=== PATIENT | female | born 1960 | race Caucasian/White ===

== ENCOUNTER → 2017-10-18 | Outpatient (CLI) | payer BC ==
--- NOTE | 2017-10-20 08:38 | MM ---
Reason for exam: screening (asymptomatic). Last mammogram was performed 1 year and 10 months ago. Physical Findings: A clinical breast exam by your physician is recommended on an annual basis and results should be correlated with mammographic findings. MG 3D Screening Mammo W/Cad Bilateral CC and MLO view(s) were taken. Prior study comparison: December 13, 2015, bilateral MG 3d screening mammo w/cad. October 29, 2014, bilateral MG screening mammo w CAD. There are scattered fibroglandular densities. No significant changes when compared with prior studies. ASSESSMENT: Benign, BI-RAD 2 RECOMMENDATION: Routine screening mammogram of both breasts in 1 year.
== END | disposition home or self-care (01) ==
LOC: RADMAMWWP 16:34
PROVIDERS: ATTEND Family Medicine
DX: Z12.31 Encounter for screening mammogram for malignant neoplasm of breast (principal)
CPT/HCPCS: 77063; 77067

== ENCOUNTER 2018-02-21 17:54 | Emergency (ER) | payer BC ==
[2018-02-21 18:31] VITALS: PULSE 54; RESP 18; TEMP 98.1
[2018-02-21 19:34] LABS: Basophils % (A) 1 %; Eosinophils # (A) 0.2 k/uL (0-0.7); Eosinophils % (A) 3 %; HCT 39.1 % (34.0-46.0); HGB 13.1 gm/dL (11.4-16.0); Lymphocytes # (A) 1.8 k/uL (1.0-4.8); Lymphocytes % (A) 30 %; MCH 30.2 pg (25.0-35.0); MCHC 33.5 g/dL (31.0-37.0); MCV 89.9 fL (80.0-100.0); Mean Platelet Volume 6.4; Monocytes # (A) 0.4 k/uL (0-1.0); Monocytes % (A) 6 %; Neutrophils # (A) 3.4 k/uL (1.3-7.7); Neutrophils % (A) 58 %; Platelet Count 254 k/uL (150-450); RBC 4.35 m/uL (3.80-5.40); RDW 13.6 % (11.5-15.5); WBC 5.9 k/uL (3.8-10.6)
[2018-02-21 19:38] LABS: ALT 26 U/L (9-52); AST 22 U/L (14-36); Albumin 4.2 g/dL (3.5-5.0); Alkaline Phosphatase 94 U/L (38-126); Anion Gap 4 mmol/L; Blood Urea Nitrogen 12 mg/dL (7-17); Calcium 9.4 mg/dL (8.4-10.2); Carbon Dioxide 29 mmol/L (22-30); Chloride 107 mmol/L (98-107); Glucose 91 mg/dL (74-99); Potassium 3.9 mmol/L (3.5-5.1); Sodium 140 mmol/L (137-145); Total Bilirubin 0.5 mg/dL (0.2-1.3); Total Protein 7.1 g/dL (6.3-8.2)
[2018-02-21 19:44] LABS: Partial Thromboplastin Time 24.8 sec (22.0-30.0)
[2018-02-21 19:45] LABS: Creatine Kinase 64 U/L (30-135)
[2018-02-21 19:58] LABS: Creatine Kinase MB 0.3 ng/mL (0.0-2.4); Troponin I <0.012 ng/mL (0.000-0.034)
[2018-02-21] MEDS ORDERED: LIDOCAINE VISCOUS 2% 15 ML CUP MUCOUS MEM ONE (21:39)
[2018-02-21] MEDS ORDERED: MAG HYDROX/AL HYDROX/SIMETH 30 ML CUP PO PRN (21:39)
--- NOTE | 2018-02-21 21:50 | ED ---
General Adult HPI - General Chief complaint: Chest Pain Stated complaint: High blood pressure/heartburn/nausea Time Seen by Provider: 02/21/18 20:59 Source: patient Mode of arrival: ambulatory Limitations: no limitations - History of Present Illness Initial comments: Kadie is an obese 57-year-old female who presents to the emergency department today for evaluation of acid reflux and nausea. Patient reports that for the past 3 days she has been experiencing a sensation of heart burn and indigestion , she states that beginning last night she began feeling as though acid was coming up into her throat. Patient states that throughout the day today she has not had any appetite and has been experiencing nausea and dry heaves. Patient states that she's having some burning epigastric pain. Patient states that she has had acid reflux in the past, however it was never this bad. She was previously on Tagamet and Zantac but has not been on any medications lately. She denies any exertional chest pain, shortness of breath, palpitations, lightheadedness. She has no history of diabetes, smoking or hyperlipidemia, she does have family history significant for a sister who had a valvular heart disease as well as father who had coronary artery disease later in life. Patient denies any recent illness, fevers, chills, change in bowel or bladder habits. She does report that for the past 9 days they have discussed staying at their house which is been mildly stressful, but she states that prior to today she's had a good appetite and been able to eat. - Related Data Home Medications Medication Instructions Recorded Confirmed Aspirin 81 mg PO DAILY PRN 11/04/14 02/21/18 Sertraline HCl [Zoloft] 50 mg PO DAILY 02/21/18 02/21/18 Allergies Allergy/AdvReac Type Severity Reaction Status Date / Time codeine Allergy Itching Verified 02/21/18 21:01 latex Allergy Rash/Hives Verified 02/21/18 21:01 Review of Systems ROS Statement: Those systems with pertinent positive or pertinent negative responses have been documented in the HPI. ROS Other: All systems not noted in ROS Statement are negative. Past Medical History Past Medical History: Hypertension History of Any Multi-Drug Resistant Organisms: None Reported Past Surgical History: Breast Surgery, Cholecystectomy, Tonsillectomy Past Psychological History: Anxiety Smoking Status: Never smoker Past Alcohol Use History: Occasional Past Drug Use History: None Reported General Exam Limitations: no limitations General appearance: alert, in no apparent distress Head exam: Present: atraumatic, normocephalic Eye exam: Present: normal appearance, PERRL ENT exam: Present: normal exam Neck exam: Present: normal inspection Respiratory exam: Present: normal lung sounds bilaterally. Absent: wheezes Cardiovascular Exam: Present: regular rate, normal rhythm GI/Abdominal exam: Present: soft. Absent: distended, tenderness Rectal exam: Present: deferred Extremities exam: Present: normal inspection, pedal edema (1+ pedal edema bilaterally ) Back exam: Present: normal inspection Neurological exam: Present: alert, oriented X3 Psychiatric exam: Present: normal affect, normal mood Skin exam: Present: warm, dry Course Vital Signs 02/21/18 02/21/18 18:29 22:02 Temperature 98.1 F Pulse Rate 54 L Respiratory 18 Rate Blood Pressure 164/82 149/66 O2 Sat by Pulse 99 Oximetry Medical Decision Making - Medical Decision Making Patient was seen and evaluated Patient with history of acid reflux, no cardiac history, risk factors for cardiac disease including age, hypertension and obesity Heart score 2 Labs within normal limits, troponin negative Patient was given a GI cocktail which she reports significantly improved her symptoms Chest x-ray reveals no acute findings Results were discussed with the patient, I offered the patient admission to the hospital for observation and evaluation by cardiology. However patient feels confident that this discomfort is secondary to gastroesophageal reflux, she feels better after the Maalox and has otherwise negative workup. Patient has a heart score of 2, low suspicion for cardiac etiology of her symptoms. Patient has an established relationship with her primary care physician whom she will call in the morning for follow-up. After discussion of the patient's options. Ensure decision making the patient and decided to be discharged home so she could sleep comfortably in her own bed and follow-up with her primary care physician. All questions pertaining care were answered the best my ability, patient was advised that if she has any worsening pain or change in her symptoms , 911 or return to the hospital immediately. - Lab Data Result diagrams: 02/21/18 19:16 02/21/18 19:16 Lab Results 02/21/18 02/21/18 02/21/18 Range/Units 19:16 19:16 19:16 WBC 5.9 (3.8-10.6) k/uL RBC 4.35 (3.80-5.40) m/uL Hgb 13.1 (11.4-16.0) gm/dL Hct 39.1 (34.0-46.0) % MCV 89.9 (80.0-100.0) fL MCH 30.2 (25.0-35.0) pg MCHC 33.5 (31.0-37.0) g/dL RDW 13.6 (11.5-15.5) % Plt Count 254 (150-450) k/uL Neutrophils % 58 % Lymphocytes % 30 % Monocytes % 6 % Eosinophils % 3 % Basophils % 1 % Neutrophils # 3.4 (1.3-7.7) k/uL Lymphocytes # 1.8 (1.0-4.8) k/uL Monocytes # 0.4 (0-1.0) k/uL Eosinophils # 0.2 (0-0.7) k/uL Basophils # 0.0 (0-0.2) k/uL PT (9.0-12.0) sec INR (<1.2) APTT (22.0-30.0) sec Sodium 140 (137-145) mmol/L Potassium 3.9 (3.5-5.1) mmol/L Chloride 107 (98-107) mmol/L Carbon Dioxide 29 (22-30) mmol/L Anion Gap 4 mmol/L BUN 12 (7-17) mg/dL Creatinine 0.80 (0.52-1.04) mg/dL Est GFR (CKD-EPI)AfAm >90 (>60 ml/min/1.73 sqM) Est GFR (CKD-EPI)NonAf 84 (>60 ml/min/1.73 sqM) Glucose 91 (74-99) mg/dL Calcium 9.4 (8.4-10.2) mg/dL Total Bilirubin 0.5 (0.2-1.3) mg/dL AST 22 (14-36) U/L ALT 26 (9-52) U/L Alkaline Phosphatase 94 (38-126) U/L Total Creatine Kinase 64 (30-135) U/L CK-MB (CK-2) 0.3 (0.0-2.4) ng/mL CK-MB (CK-2) Rel Index 0.5 Troponin I <0.012 (0.000-0.034) ng/mL Total Protein 7.1 (6.3-8.2) g/dL Albumin 4.2 (3.5-5.0) g/dL 02/21/18 Range/Units 19:16 WBC (3.8-10.6) k/uL RBC (3.80-5.40) m/uL Hgb (11.4-16.0) gm/dL Hct (34.0-46.0) % MCV (80.0-100.0) fL MCH (25.0-35.0) pg MCHC (31.0-37.0) g/dL RDW (11.5-15.5) % Plt Count (150-450) k/uL Neutrophils % % Lymphocytes % % Monocytes % % Eosinophils % % Basophils % % Neutrophils # (1.3-7.7) k/uL Lymphocytes # (1.0-4.8) k/uL Monocytes # (0-1.0) k/uL Eosinophils # (0-0.7) k/uL Basophils # (0-0.2) k/uL PT 10.0 (9.0-12.0) sec INR 1.0 (<1.2) APTT 24.8 (22.0-30.0) sec Sodium (137-145) mmol/L Potassium (3.5-5.1) mmol/L Chloride (98-107) mmol/L Carbon Dioxide (22-30) mmol/L Anion Gap mmol/L BUN (7-17) mg/dL Creatinine (0.52-1.04) mg/dL Est GFR (CKD-EPI)AfAm (>60 ml/min/1.73 sqM) Est GFR (CKD-EPI)NonAf (>60 ml/min/1.73 sqM) Glucose (74-99) mg/dL Calcium (8.4-10.2) mg/dL Total Bilirubin (0.2-1.3) mg/dL AST (14-36) U/L ALT (9-52) U/L Alkaline Phosphatase (38-126) U/L Total Creatine Kinase (30-135) U/L CK-MB (CK-2) (0.0-2.4) ng/mL CK-MB (CK-2) Rel Index Troponin I (0.000-0.034) ng/mL Total Protein (6.3-8.2) g/dL Albumin (3.5-5.0) g/dL Disposition Clinical Impression: Atypical chest pain, GERD (gastroesophageal reflux disease) Disposition: HOME SELF-CARE Condition: Good Instructions: Chest Pain (ED) Is patient prescribed a controlled substance at d/c from ED?: No Referrals: Mj Escobar DO [Primary Care Provider] - 1-2 days Time of Disposition: 23:50
--- NOTE | 2018-02-21 21:58 | XR ---
EXAMINATION TYPE: XR chest 2V DATE OF EXAM: 02/21/2018 COMPARISON: NONE HISTORY: Chest pain TECHNIQUE: Frontal and lateral views of the chest are obtained. FINDINGS: Heart and mediastinum are normal. Lungs are clear. Diaphragm is normal. Bony thorax is int act. IMPRESSION: Normal chest.
[2018-02-21 22:02] VITALS: BP 149/66
== END 2018-02-22 00:05 | disposition home or self-care (01) ==
LOC: EC 17:54
DX: K21.9 Gastro-esophageal reflux disease without esophagitis (principal); R11.0 Nausea; E66.9 Obesity, unspecified; Z68.39 Body mass index [BMI] 39.0-39.9, adult; F41.9 Anxiety disorder, unspecified; Z79.899 Other long term (current) drug therapy; Z91.040 Latex allergy status; Z88.5 Allergy status to narcotic agent
CPT/HCPCS: 36415; 71046; 80053; 82550; 82553; 84484; 85025; 85610; 85730; 93005; 99285

== ENCOUNTER 2018-09-12 11:34 | Inpatient (IN) | payer BC ==
[2018-09-12] MEDS ORDERED: DILTIAZEM DRIP BOLUS FROM BAG 1 MG SOLN IV ONE ×2 (12:11→13:41)
[2018-09-12] MEDS ORDERED: ASPIRIN 81 MG PO STA (12:11)
--- NOTE | 2018-09-12 12:16 | ED ---
General Adult HPI - General Chief complaint: Arrhythmia/Palpitations Stated complaint: Palpitations Time Seen by Provider: 09/12/18 11:50 Source: patient, family, RN notes reviewed Mode of arrival: ambulatory Limitations: no limitations - History of Present Illness Initial comments: Patient is a pleasant 57-year-old female presenting to the emergency department with complaints of palpitations. Onset of symptoms was yesterday. Symptoms lasted a couple hours and resolved. Symptoms started again around 8:00 this morning. Symptoms do persist. Patient has some discomfort in her chest and shortness of breath associated. Patient has had some similar symptoms in the past however only lasted for a few minutes. Patient was previously evaluated with no abnormality determined. Patient does have strong family history of heart disease. Patient denies any use of energy drinks or diet supplements or significant caffeine intake. - Related Data Home Medications Medication Instructions Recorded Confirmed Sertraline HCl [Zoloft] 50 mg PO DAILY 02/21/18 09/12/18 Cholecalciferol [Vitamin D3] 1,000 unit PO DAILY 09/12/18 09/12/18 Allergies Allergy/AdvReac Type Severity Reaction Status Date / Time codeine Allergy Itching Verified 09/12/18 12:05 hydrocodone Allergy Rash/Hives Verified 09/12/18 12:05 latex Allergy Rash/Hives Verified 09/12/18 12:05 Review of Systems ROS Statement: Those systems with pertinent positive or pertinent negative responses have been documented in the HPI. ROS Other: All systems not noted in ROS Statement are negative. Constitutional: Denies: fever Eyes: Denies: eye pain ENT: Denies: ear pain Respiratory: Reports: dyspnea. Denies: cough Cardiovascular: Reports: chest pain, palpitations Endocrine: Denies: fatigue Gastrointestinal: Denies: abdominal pain, nausea, vomiting Genitourinary: Denies: dysuria Musculoskeletal: Denies: back pain Skin: Denies: rash Neurological: Denies: weakness Past Medical History Past Medical History: Hypertension History of Any Multi-Drug Resistant Organisms: None Reported Past Surgical History: Breast Surgery, Cholecystectomy, Tonsillectomy Past Psychological History: Anxiety Smoking Status: Never smoker Past Alcohol Use History: Occasional Past Drug Use History: None Reported General Exam Limitations: no limitations General appearance: alert, in no apparent distress Head exam: Present: atraumatic Eye exam: Present: normal appearance, PERRL ENT exam: Present: normal oropharynx Neck exam: Present: normal inspection Respiratory exam: Present: normal lung sounds bilaterally Cardiovascular Exam: Present: tachycardia Expanded Peripheral pulses: 2+: Radial (R), Radial (L), Posterior Tibialis (R), Posterior Tibialis (L), Dorsalis Pedis (R), Dorsalis Pedis (L) GI/Abdominal exam: Present: soft. Absent: tenderness Extremities exam: Present: normal inspection. Absent: pedal edema, calf tenderness Neurological exam: Present: alert Psychiatric exam: Present: normal affect, normal mood Skin exam: Present: normal color Course Vital Signs 09/12/18 09/12/18 09/12/18 11:42 12:25 12:44 Temperature 98.7 F Pulse Rate 149 H 147 H Pulse Rate [ 147 H Upholstery Technician ] Respiratory 18 20 Rate Blood Pressure 102/90 145/87 O2 Sat by Pulse 98 100 Oximetry 09/12/18 09/12/18 13:44 14:31 Temperature Pulse Rate 144 H 104 H Pulse Rate [ Upholstery Technician ] Respiratory 16 18 Rate Blood Pressure 133/69 O2 Sat by Pulse 100 100 Oximetry EKG Findings - EKG Comments: EKG Findings:: A flutter with rate of 145. QRS 94. QT 280. QTC 434. Normal axis. Incomplete right bundle-branch block. No acute ST elevation. Medical Decision Making - Medical Decision Making Patient reevaluated and somewhat improved. Heart rate varies between 96 and 135. Patient and family updated on results and plan. Case was discussed in detail with Dr. Carolina, covering for Dr. mejia, who will admit. - Lab Data Result diagrams: 09/12/18 11:51 09/12/18 11:51 Lab Results 09/12/18 09/12/18 09/12/18 Range/Units 11:51 11:51 11:51 WBC 16.9 H (3.8-10.6) k/uL RBC 4.68 (3.80-5.40) m/uL Hgb 13.6 (11.4-16.0) gm/dL Hct 41.4 (34.0-46.0) % MCV 88.5 (80.0-100.0) fL MCH 29.0 (25.0-35.0) pg MCHC 32.7 (31.0-37.0) g/dL RDW 13.9 (11.5-15.5) % Plt Count 356 (150-450) k/uL Neutrophils % 84 % Lymphocytes % 12 % Monocytes % 3 % Eosinophils % 1 % Basophils % 0 % Neutrophils # 14.2 H (1.3-7.7) k/uL Lymphocytes # 2.0 (1.0-4.8) k/uL Monocytes # 0.5 (0-1.0) k/uL Eosinophils # 0.1 (0-0.7) k/uL Basophils # 0.1 (0-0.2) k/uL PT (9.0-12.0) sec INR (<1.2) APTT (22.0-30.0) sec Sodium 141 (137-145) mmol/L Potassium 4.3 (3.5-5.1) mmol/L Chloride 108 H (98-107) mmol/L Carbon Dioxide 21 L (22-30) mmol/L Anion Gap 12 mmol/L BUN 11 (7-17) mg/dL Creatinine 0.79 (0.52-1.04) mg/dL Est GFR (CKD-EPI)AfAm >90 (>60 ml/min/1.73 sqM) Est GFR (CKD-EPI)NonAf 85 (>60 ml/min/1.73 sqM) Glucose 115 H (74-99) mg/dL Calcium 10.1 (8.4-10.2) mg/dL Magnesium 1.7 (1.6-2.3) mg/dL Total Bilirubin 0.7 (0.2-1.3) mg/dL AST 24 (14-36) U/L ALT 18 (9-52) U/L Alkaline Phosphatase 83 (38-126) U/L Total Creatine Kinase 50 (30-135) U/L CK-MB (CK-2) <0.2 (0.0-2.4) ng/mL CK-MB (CK-2) Rel Index Troponin I <0.012 (0.000-0.034) ng/mL Total Protein 7.1 (6.3-8.2) g/dL Albumin 4.0 (3.5-5.0) g/dL TSH 2.030 (0.465-4.680) mIU/L Free T4 1.40 (0.78-2.19) ng/dL Free T3 pg/mL 3.7 (2.8-5.3) pg/ml 09/12/18 Range/Units 11:51 WBC (3.8-10.6) k/uL RBC (3.80-5.40) m/uL Hgb (11.4-16.0) gm/dL Hct (34.0-46.0) % MCV (80.0-100.0) fL MCH (25.0-35.0) pg MCHC (31.0-37.0) g/dL RDW (11.5-15.5) % Plt Count (150-450) k/uL Neutrophils % % Lymphocytes % % Monocytes % % Eosinophils % % Basophils % % Neutrophils # (1.3-7.7) k/uL Lymphocytes # (1.0-4.8) k/uL Monocytes # (0-1.0) k/uL Eosinophils # (0-0.7) k/uL Basophils # (0-0.2) k/uL PT 10.2 (9.0-12.0) sec INR 1.0 (<1.2) APTT 24.7 (22.0-30.0) sec Sodium (137-145) mmol/L Potassium (3.5-5.1) mmol/L Chloride (98-107) mmol/L Carbon Dioxide (22-30) mmol/L Anion Gap mmol/L BUN (7-17) mg/dL Creatinine (0.52-1.04) mg/dL Est GFR (CKD-EPI)AfAm (>60 ml/min/1.73 sqM) Est GFR (CKD-EPI)NonAf (>60 ml/min/1.73 sqM) Glucose (74-99) mg/dL Calcium (8.4-10.2) mg/dL Magnesium (1.6-2.3) mg/dL Total Bilirubin (0.2-1.3) mg/dL AST (14-36) U/L ALT (9-52) U/L Alkaline Phosphatase (38-126) U/L Total Creatine Kinase (30-135) U/L CK-MB (CK-2) (0.0-2.4) ng/mL CK-MB (CK-2) Rel Index Troponin I (0.000-0.034) ng/mL Total Protein (6.3-8.2) g/dL Albumin (3.5-5.0) g/dL TSH (0.465-4.680) mIU/L Free T4 (0.78-2.19) ng/dL Free T3 pg/mL (2.8-5.3) pg/ml - Radiology Data Radiology results: image reviewed (Chest x-ray shows some mild central vascular congestion.) Critical Care Time Critical Care Time: Yes Total Critical Care Time: 34 Disposition Clinical Impression: Atrial flutter, Tachycardia Disposition: ADMITTED IP TO THIS HOSP Is patient prescribed a controlled substance at d/c from ED?: No Referrals: Mj Escobar DO [Primary Care Provider] - 1-2 days Decision Time: 14:47
--- NOTE | 2018-09-12 12:44 | XR ---
EXAMINATION TYPE: XR chest 2V DATE OF EXAM: 09/12/2018 COMPARISON: CXR from 02/21/2018. HISTORY: Dysrhythmia. TECHNIQUE: Frontal and lateral views of the chest are obtained. FINDINGS: There is new mild central vascular congestion felt present. There is no focal air space op acity, pleural effusion, or pneumothorax seen. The cardiac silhouette size is within upper limits of normal normal limits. The osseous structures are intact. IMPRESSION: New mild central vascular congestion felt present.
[2018-09-12 12:47] LABS: Basophils # (A) 0.1 k/uL (0-0.2); Basophils % (A) 0 %; Eosinophils # (A) 0.1 k/uL (0-0.7); Eosinophils % (A) 1 %; HCT 41.4 % (34.0-46.0); HGB 13.6 gm/dL (11.4-16.0); Lymphocytes % (A) 12 %; MCHC 32.7 g/dL (31.0-37.0); MCV 88.5 fL (80.0-100.0); Mean Platelet Volume 6.3; Monocytes # (A) 0.5 k/uL (0-1.0); Monocytes % (A) 3 %; Neutrophils # (A) 14.2 k/uL (1.3-7.7); Neutrophils % (A) 84 %; Platelet Count 356 k/uL (150-450); RBC 4.68 m/uL (3.80-5.40); RDW 13.9 % (11.5-15.5); WBC 16.9 k/uL (3.8-10.6)
[2018-09-12] MEDS: DILTIAZEM 50 MG in SODIUM CHLORIDE 0.9% 40 ML IV SCH ×3 (12:50→23:35)
[2018-09-12 12:57] LABS: Partial Thromboplastin Time 24.7 sec (22.0-30.0); Prothrombin Time 10.2 sec (9.0-12.0)
[2018-09-12 13:05] LABS: ALT 18 U/L (9-52); AST 24 U/L (14-36); Alkaline Phosphatase 83 U/L (38-126); Anion Gap 12 mmol/L; Blood Urea Nitrogen 11 mg/dL (7-17); Calcium 10.1 mg/dL (8.4-10.2); Carbon Dioxide 21 mmol/L (22-30); Chloride 108 mmol/L (98-107); Glucose 115 mg/dL (74-99); Magnesium 1.7 mg/dL (1.6-2.3); Potassium 4.3 mmol/L (3.5-5.1); Sodium 141 mmol/L (137-145); Total Bilirubin 0.7 mg/dL (0.2-1.3); Total Protein 7.1 g/dL (6.3-8.2)
[2018-09-12 13:07] LABS: Creatine Kinase 50 U/L (30-135)
[2018-09-12 13:21] LABS: Creatine Kinase MB <0.2 ng/mL (0.0-2.4); Troponin I <0.012 ng/mL (0.000-0.034)
--- NOTE | 2018-09-12 14:43 | P.HPIM ---
History of Present Illness Patient is a very pleasant 57-year-old female came in with compensative chest pressure like sensation palpitations which started yesterday morning resolved and started having the symptoms again patient had some chills denied any significant fever, was comparing of dry cough and flulike symptoms recently, patient denied any dysuria chest x-rayand pneumonic process but there is a possibility of pulmonary edema BNP is a pending I cannot really assess his JVD because of her fast heart rate. Patient is found to be in atrial fibrillation patient is also complaining of chest pressure-like sensation on and off never had any history of coronary artery disease there is associated diaphoresis lightheadedness associated with the chest pressure. Review of Systems REVIEW OF SYSTEMS: CONSTITUTIONAL: No fever, no malaise, no fatigue. HEENT: No recent visual problems or hearing problems. Denied any sore throat. CARDIOVASCULAR: No orthopnea, PND, no syncope. PULMONARY: No shortness of breath, no cough, no hemoptysis. GASTROINTESTINAL: No diarrhea, no nausea, no vomiting, no abdominal pain. NEUROLOGICAL: No headaches, no weakness, no numbness. HEMATOLOGICAL: Denies any bleeding or petechiae. GENITOURINARY: Denies any burning micturition, frequency, or urgency. MUSCULOSKELETAL/RHEUMATOLOGICAL: Denies any joint pain, swelling, or any muscle pain. ENDOCRINE: Denies any polyuria or polydipsia. The rest of the 14-point review of systems is negative. Past Medical History Past Medical History: Hypertension History of Any Multi-Drug Resistant Organisms: None Reported Past Surgical History: Breast Surgery, Cholecystectomy, Tonsillectomy Past Psychological History: Anxiety Smoking Status: Never smoker Past Alcohol Use History: Occasional Past Drug Use History: None Reported Medications and Allergies Home Medications Medication Instructions Recorded Confirmed Type Sertraline HCl [Zoloft] 50 mg PO DAILY 02/21/18 09/12/18 History Cholecalciferol [Vitamin D3] 1,000 unit PO DAILY 09/12/18 09/12/18 History Allergies Allergy/AdvReac Type Severity Reaction Status Date / Time codeine Allergy Itching Verified 09/12/18 12:05 hydrocodone Allergy Rash/Hives Verified 09/12/18 12:05 latex Allergy Rash/Hives Verified 09/12/18 12:05 Physical Exam Vitals: Vital Signs Temp Pulse Pulse Resp BP Pulse Ox 09/12/18 14:31 104 H 18 133/69 100 09/12/18 13:44 144 H 16 100 09/12/18 12:44 147 H 20 145/87 100 09/12/18 12:25 147 H 09/12/18 11:42 98.7 F 149 H 18 102/90 98 Intake and Output 09/11/18 09/12/18 09/12/18 22:59 06:59 14:59 Intake Total 4.417 Balance 4.417 Intake: Intake, IV Titration 4.417 Amount Diltiazem 50 mg In Sodium 4.417 Chloride 0.9% 40 ml @ 5 MG/HR 5 mls/hr IV .Q10H [facility] Rx#:[id number] Other: Weight 255 kg PHYSICAL EXAMINATION: GENERAL: The patient is alert and oriented x3, not in any acute distress. Well developed, well nourished. HEENT: Pupils are round and equally reacting to light. EOMI. No scleral icterus. No conjunctival pallor. Normocephalic, atraumatic. No pharyngeal erythema. No thyromegaly. CARDIOVASCULAR: S1 and S2 present. No murmurs, rubs, or gallops. Tachycardic irregularly irregular rhythm PULMONARY: Chest is clear to auscultation, no wheezing or crackles. ABDOMEN: Soft, nontender, nondistended, normoactive bowel sounds. No palpable organomegaly. MUSCULOSKELETAL: No joint swelling or deformity. EXTREMITIES: No cyanosis, clubbing, or pedal edema. NEUROLOGICAL: Gross neurological examination did not reveal any focal deficits. SKIN: No rashes. Results CBC & Chem 7: 09/12/18 11:51 09/12/18 11:51 Labs: Abnormal Lab Results - Last 24 Hours (Table) 09/12/18 09/12/18 Range/Units 11:51 11:51 WBC 16.9 H (3.8-10.6) k/uL Neutrophils # 14.2 H (1.3-7.7) k/uL Chloride 108 H (98-107) mmol/L Carbon Dioxide 21 L (22-30) mmol/L Glucose 115 H (74-99) mg/dL Assessment and Plan Plan: -Atrial fibrillation with rapid ventricular rate patient has a new onset A. fib and chest pressure is probably related to that was set of troponin is negative EKG showed some nonspecific ST-T wave changes and some RBBB pattern cardiology was consulted patient was given a dose of Cardizem with mild improvement in her heart rate will start her on metoprolol if her heart rate is not controlled patient will need a Cardizem drip echocardiogram will be obtained patient will be started on anticoagulation with IV heparin or enoxaparin. Cannot completely rule out unstable angina -Possibly of pulmonary edema from atrial fibrillation will obtain echocardiogram mentioned whether patient has congestive heart failure cannot -ALLERGIC rhinitis and pharyngitis -Anxiety disorder
[2018-09-12] MEDS ORDERED: HEPARIN SODIUM,PORCINE 5,000 UNIT/ML 1 ML VIAL IV ONE (14:48)
[2018-09-12] MEDS ORDERED: HEPARIN SODIUM,PORCINE 5,000 UNIT/ML 1 ML VIAL IV PRN (14:48)
[2018-09-12] MEDS ORDERED: HEPARIN SOD,PORK IN 0.45% NACL 25,000 UNIT in 0.45% NACL 1 250ML.BAG IV SCH (15:00)
[2018-09-12] MEDS: HEPARIN SOD,PORK IN 0.45% NACL 25,000 UNIT in 0.45% NACL 1 250ML.BAG IV SCH (15:34)
[2018-09-12] MEDS: METOPROLOL TARTRATE 50 MG TAB PO SCH ×2 (16:29→22:06)
[2018-09-12 16:30] LABS: Appearance,Urine Clear (Clear); Bilirubin,Urine Negative (Negative); Blood,Urine Negative (Negative); Color,Urine Light Yellow; Glucose,Urine (UA) Negative (Negative); Ketones,Urine Negative (Negative); Leukocyte Esterase,Urine Negative (Negative); Nitrite,Urine Negative (Negative); Protein,Urine Negative (Negative); Specific Gravity,Urine 1.007 (1.001-1.035); Urobilinogen,Urine <2.0 mg/dL (<2.0)
[2018-09-12 16:43] LABS: Amphetamine Screen,Urine Not Detected (NotDetected); Barbiturate Screen,Urine Not Detected (NotDetected); Benzodiazepines Screen,Urine Not Detected (NotDetected); Cocaine Screen,Urine Not Detected (NotDetected); Methadone Screen, Urine Not Detected (NotDetected); Opiate Screen,Urine Not Detected (NotDetected); Oxycodone Screen, Urine Not Detected (NotDetected); Phencyclidine Screen,Urine Not Detected (NotDetected); Tricyclic Antidepressant,Urine Not Detected (NotDetected); Urn Cannabinoid Scrn Detected (NotDetected)
[2018-09-12 18:53] VITALS: BMI 39.9
[2018-09-12 19:32] LABS: Creatine Kinase 45 U/L (30-135)
[2018-09-12 19:46] LABS: Creatine Kinase MB <0.2 ng/mL (0.0-2.4); Troponin I <0.012 ng/mL (0.000-0.034)
[2018-09-13 00:36] LABS: Creatine Kinase 47 U/L (30-135)
[2018-09-13 00:49] LABS: Creatine Kinase MB 0.5 ng/mL (0.0-2.4); Troponin I <0.012 ng/mL (0.000-0.034)
[2018-09-13 06:27] LABS: Mean Platelet Volume 6.7; Platelet Count 269 k/uL (150-450)
[2018-09-13 06:37] LABS: Cholesterol 114 mg/dL (<200); HDL Cholesterol 31 mg/dL (40-60); LDL Cholesterol,Calculated 54 mg/dL (0-99); Triglycerides 143 mg/dL (<150)
[2018-09-13] MEDS: METOPROLOL TARTRATE 50 MG TAB PO SCH ×2 (08:23→20:32)
[2018-09-13] MEDS ORDERED: ASPIRIN 325 MG TAB PO SCH (09:00)
[2018-09-13] MEDS ORDERED: DEXTROSE 5% IN WATER 100 ML with AMIODARONE 150 MG IV ONE (09:23)
--- NOTE | 2018-09-13 09:24 | P.CRDCN ---
History of Present Illness Consult date: 09/13/18 Requesting physician: Teressa Carolina Consult reason: atrial flutter Chief complaint: Chest pressure, palpitations, and heart racing History of present illness: This is a 57-year-old female with no prior documented history of hypertension, no diabetes, no hyperlipidemia, nonsmoker, rare EtOH, presents to the hospital with symptoms of chest pressure with associated heart racing. She does state recently that she's had an upper respiratory infection and cold-like symptoms. According to the patient, she has had similar symptoms to these over the years, she was told in the past but they were likely anxiety attacks. Patient came to the emergency room for this reason. EKG on presentation here showed atrial flutter with rapid ventricular response, chest x-ray shows new mild central vascular congestion. Blood pressure this morning 112/70 with a heart rate in the 130s, afebrile. 96% on room air. White blood cell count 16.9 , hemoglobin 13.6, platelet count 356. D-dimer 0.2. Sodium 141, potassium 4.3 , BUN 11, creatinine 0.7. Troponins are negative 3. BNP level 4640. TSH 2.0 , free T4 1 0.4 and free T3 3.7. Drug screen positive for marijuana. At the time of my examination this morning, patient continues to be in an atrial flutter with a heart rate of 1:30 to 140, she is sitting in bed, in time she is asymptomatic. She is currently on a Cardizem drip at 20 along with IV heparin. Past Medical History Past Medical History: Hypertension History of Any Multi-Drug Resistant Organisms: None Reported Past Surgical History: Cholecystectomy, Tonsillectomy Past Psychological History: Anxiety Smoking Status: Never smoker Past Alcohol Use History: Occasional Past Drug Use History: None Reported - Past Family History Mother Family Medical History: Hypertension, Myocardial Infarction (VT) Father Family Medical History: Hypertension, Myocardial Infarction (VT) Medications and Allergies Home Medications Medication Instructions Recorded Confirmed Type Sertraline HCl [Zoloft] 50 mg PO DAILY 02/21/18 09/12/18 History Cholecalciferol [Vitamin D3] 1,000 unit PO DAILY 09/12/18 09/12/18 History Allergies Allergy/AdvReac Type Severity Reaction Status Date / Time codeine Allergy Itching Verified 09/12/18 12:05 hydrocodone Allergy Rash/Hives Verified 09/12/18 12:05 latex Allergy Rash/Hives Verified 09/12/18 12:05 Physical Exam Vitals: Vital Signs Temp Pulse Pulse Pulse Resp BP BP 09/13/18 08:00 98.1 F 132 H 16 112/72 09/13/18 03:40 97.6 F 64 16 115/72 09/12/18 23:28 97.8 F 65 16 96/54 09/12/18 20:00 97.5 F L 73 18 112/68 09/12/18 17:45 72 16 09/12/18 17:30 98.2 F 72 16 96/58 09/12/18 17:00 98.6 F 73 16 106/63 09/12/18 15:30 73 13 09/12/18 15:25 98.2 F 105 H 16 108/81 09/12/18 15:20 85 21 108/81 09/12/18 15:10 78 108/81 09/12/18 15:00 138 H 15 09/12/18 14:50 84 15 133/69 09/12/18 14:40 112 H 21 133/69 09/12/18 14:31 104 H 18 133/69 09/12/18 14:30 112 H 4 L 120/81 09/12/18 14:20 113 H 18 120/81 09/12/18 14:10 142 H 17 120/81 09/12/18 14:00 80 19 09/12/18 13:50 138 H 09/12/18 13:44 144 H 16 09/12/18 13:40 141 H 17 09/12/18 13:30 112 H 22 66/47 09/12/18 13:20 149 H 66/47 09/12/18 13:10 146 H 15 166/131 09/12/18 13:00 94 09/12/18 12:53 147 H 145/87 09/12/18 12:44 147 H 20 145/87 09/12/18 12:25 147 H 09/12/18 11:42 98.7 F 149 H 18 102/90 Pulse Ox 09/13/18 08:00 96 09/13/18 03:40 94 L 09/12/18 23:28 98 09/12/18 20:00 95 09/12/18 17:45 09/12/18 17:30 95 09/12/18 17:00 98 09/12/18 15:30 09/12/18 15:25 98 09/12/18 15:20 09/12/18 15:10 100 09/12/18 15:00 99 09/12/18 14:50 100 09/12/18 14:40 100 09/12/18 14:31 100 09/12/18 14:30 100 09/12/18 14:20 99 09/12/18 14:10 98 09/12/18 14:00 99 09/12/18 13:50 99 09/12/18 13:44 100 09/12/18 13:40 100 09/12/18 13:30 100 09/12/18 13:20 99 09/12/18 13:10 100 09/12/18 13:00 100 09/12/18 12:53 100 09/12/18 12:44 100 09/12/18 12:25 09/12/18 11:42 98 Intake and Output 09/12/18 09/13/18 09/13/18 22:59 06:59 14:59 Intake Total 618.333 390.123 210 Output Total 801 Balance -182.667 390.123 210 Intake: IV 80 240 10 0.9 160 Heparin Sod,Pork in 0.45% 80 80 NaCl 25,000 unit In 0.45 % NaCl 1 250ml.bag @ 8.1 UNITS/KG/HR 9.92 mls/hr IV .Q24H [facility] Rx#: [id number] Invasive Line 2 10 Amount of Fluid Infused ( 300 ml) Intake, IV Titration 16.333 150.123 Amount Diltiazem 50 mg In Sodium 16.333 Chloride 0.9% 40 ml @ 10 MG/HR 10 mls/hr IV .Q5H [facility] Rx#:[id number] Heparin Sod,Pork in 0.45% 150.123 NaCl 25,000 unit In 0.45 % NaCl 1 250ml.bag @ 8.1 UNITS/KG/HR 9.92 mls/hr IV .Q24H [facility] Rx#: [id number] Oral 222 200 Output: Urine 801 Other: Weight 118.6 kg PHYSICAL EXAMINATION: GENERAL: 57-year-old female in no acute distress at the time of my examination HEENT: Head is atraumatic, normocephalic. Pupils equal, round. Sclera anicteric. Conjunctiva are clear. Mucous membranes of the mouth are moist. Neck is supple. There is no elevated jugular venous pressure. No carotid bruit is heard. HEART EXAMINATION: Heart S1 and S2 irregularly irregular CHEST EXAMINATION: Lungs reveal scattered wheezes throughout ABDOMEN: Soft, nontender. Bowel sounds are heard. No organomegaly noted. EXTREMITIES: 2+ peripheral pulses with no evidence of peripheral edema and no calf tenderness noted. NEUROLOGIC patient is awake, alert and oriented 3 . . Results 09/13/18 05:39 09/12/18 11:51 Cardiac Enzymes 09/12/18 09/12/18 09/12/18 Range/Units 11:51 11:51 18:30 AST 24 (14-36) U/L CK-MB (CK-2) <0.2 <0.2 (0.0-2.4) ng/mL Troponin I <0.012 <0.012 (0.000-0.034) ng/mL 09/12/18 Range/Units 23:43 AST (14-36) U/L CK-MB (CK-2) 0.5 (0.0-2.4) ng/mL Troponin I <0.012 (0.000-0.034) ng/mL Coagulation 09/12/18 09/12/18 09/13/18 Range/Units 11:51 18:30 05:39 PT 10.2 (9.0-12.0) sec APTT 24.7 48.1 H 36.3 H (22.0-30.0) sec Lipids 09/13/18 Range/Units 05:39 Triglycerides 143 (<150) mg/dL Cholesterol 114 (<200) mg/dL HDL Cholesterol 31 L (40-60) mg/dL CBC 09/12/18 09/13/18 Range/Units 11:51 05:39 WBC 16.9 H (3.8-10.6) k/uL RBC 4.68 (3.80-5.40) m/uL Hgb 13.6 (11.4-16.0) gm/dL Hct 41.4 (34.0-46.0) % Plt Count 356 269 (150-450) k/uL Comprehensive Metabolic Panel 09/12/18 Range/Units 11:51 Sodium 141 (137-145) mmol/L Potassium 4.3 (3.5-5.1) mmol/L Chloride 108 H (98-107) mmol/L Carbon Dioxide 21 L (22-30) mmol/L BUN 11 (7-17) mg/dL Creatinine 0.79 (0.52-1.04) mg/dL Glucose 115 H (74-99) mg/dL Calcium 10.1 (8.4-10.2) mg/dL AST 24 (14-36) U/L ALT 18 (9-52) U/L Alkaline Phosphatase 83 (38-126) U/L Total Protein 7.1 (6.3-8.2) g/dL Albumin 4.0 (3.5-5.0) g/dL Current Medications Generic Name Dose Route Start Last Admin Trade Name Freq PRN Reason Stop Dose Admin Aspirin 325 mg 09/13/18 09:00 09/13/18 08:24 Aspirin PO 325 mg DAILY [facility] Administration Heparin Sodium (Porcine) 0 unit 09/12/18 14:48 Heparin IV Q6HR PRN Low PTT Protocol Diltiazem HCl 50 mg/ Sodium 50 mls @ 10 mls/hr 09/12/18 12:15 09/12/18 23:35 Chloride IV Not Given .Q5H [facility] 10 MG/HR Heparin Sodium/Sodium Chloride 250 mls @ 9.92 mls/hr 09/12/18 15:30 09/13/18 06:42 25,000 unit/ Sodium Chloride IV 11.1 units/kg/hr .Q24H [facility] 13.59 mls/hr Titration Protocol 8.1 UNITS/KG/HR Metoprolol Tartrate 50 mg 09/12/18 15:48 09/13/18 08:23 Lopressor PO 50 mg BID [facility] Administration Sodium Chloride 10 ml 09/12/18 21:00 09/13/18 08:24 Saline Flush IV 10 ml BID [facility] Administration Intake and Output 09/12/18 09/13/18 09/13/18 22:59 06:59 14:59 Intake Total 618.333 390.123 210 Output Total 801 Balance -182.667 390.123 210 Intake: IV 80 240 10 0.9 160 Heparin Sod,Pork in 0.45% 80 80 NaCl 25,000 unit In 0.45 % NaCl 1 250ml.bag @ 8.1 UNITS/KG/HR 9.92 mls/hr IV .Q24H [facility] Rx#: [id number] Invasive Line 2 10 Amount of Fluid Infused ( 300 ml) Intake, IV Titration 16.333 150.123 Amount Diltiazem 50 mg In Sodium 16.333 Chloride 0.9% 40 ml @ 10 MG/HR 10 mls/hr IV .Q5H [facility] Rx#:[id number] Heparin Sod,Pork in 0.45% 150.123 NaCl 25,000 unit In 0.45 % NaCl 1 250ml.bag @ 8.1 UNITS/KG/HR 9.92 mls/hr IV .Q24H [facility] Rx#: [id number] Oral 222 200 Output: Urine 801 Other: Weight 118.6 kg 09/13/18 05:39 09/12/18 11:51 EKG Interpretations (text) EKG shows atrial flutter with a rapid ventricular response Assessment and Plan Plan: Assessment and plan #1 symptoms of chest pressure with associated palpitations and heart racing, EKG shows atrial flutter with a rapid ventricular response. TSH normal #2 mild congestive cardiac failure, could be secondary to atrial flutter with rapid rate, LV function unknown #3 marijuana use #4 cardiac risk factors negative for hypertension, no diabetes, no hyperlipidemia, nonsmoker. Plan Will obtain an echocardiogram with Doppler study. The patient's heart rate this morning continues to be in the 1:30 to 140 range, we will initiate amiodarone IV per protocol. Decrease her aspirin 81 mg daily. Give the patient a one-time dose of IV Lasix. Further recommendations to follow. DNP note has been reviewed, I agree with a documented findings and plan of care. Patient was seen and examined.
[2018-09-13] MEDS ORDERED: ASPIRIN 81 MG PO SCH (09:30)
[2018-09-13] MEDS: DILTIAZEM 50 MG in SODIUM CHLORIDE 0.9% 40 ML IV SCH (10:53)
[2018-09-13] MEDS: HEPARIN SOD,PORK IN 0.45% NACL 25,000 UNIT in 0.45% NACL 1 250ML.BAG IV SCH (11:20)
[2018-09-13] MEDS: AMIODARONE 450 MG in DEXTROSE 5% IN WATER 250 ML IV SCH ×4 (11:35→18:54)
--- NOTE | 2018-09-13 12:10 | ECHOF ---
Referral Reason:A. Fib MEASUREMENTS -------- HEIGHT: 175.3 cm WEIGHT: 115.7 kg BP: 145/87 RVIDd: 2.1 cm (< 3.3) IVSd: 1.3 cm (0.6 - 1.1) LVIDd: 3.0 cm (3.9 - 5.3) LVPWd: 1.5 cm (0.6 - 1.1) IVSs: 2.0 cm LVIDs: 2.2 cm LVPWs: 2.0 cm LAESV Index (A-L): 21.96 ml/m Ao Diam: 2.8 cm (2.0 - 3.7) AV Cusp: 2.0 cm (1.5 - 2.6) LA Diam: 3.4 cm (2.7 - 3.8) RAP: 5.00 mmHg RVSP: 14.08 mmHg FINDINGS -------- Atrial fibrillation. This was a technically good study. The left ventricular size is normal. There is moderate concentric left ventricular hypertrophy. O verall left ventricular systolic function is normal with, an EF between 55 - 60 %. The right ventricle is normal in size and function. The left atrium is normal in size. The right atrium is normal in size. The aortic valve is trileaflet and appears structurally normal. There is trace mitral regurgitation. Trace tricuspid regurgitation present. The right ventricular systolic pressure, as measured by Dopp ler, is 14.08mmHg. Pulmonic valve appears structurally normal. The aortic root size is normal. Normal inferior vena cava with normal inspiratory collapse consistent with estimated right atrial pre ssure of 5 mmHg. The pericardium is normal. CONCLUSIONS -------- 1. Atrial fibrillation. 2. This was a technically good study. 3. The left ventricular size is normal. 4. There is moderate concentric left ventricular hypertrophy. 5. Overall left ventricular systolic function is normal with, an EF between 55 - 60 %. 6. The right ventricle is normal in size and function. 7. The left atrium is normal in size. 8. The right atrium is normal in size. 9. The aortic valve is trileaflet and appears structurally normal. 10. There is trace mitral regurgitation. 11. Trace tricuspid regurgitation present. 12. The right ventricular systolic pressure, as measured by Doppler, is 14.08mmHg. 13. Pulmonic valve appears structurally normal. 14. The aortic root size is normal. 15. Normal inferior vena cava with normal inspiratory collapse consistent with estimated right atrial pressure of 5 mmHg. 16. The pericardium is normal. FITTER HELPER: Rebeca Amin RDCS
[2018-09-13 20:31] VITALS: TEMP 98.6
[2018-09-13] MEDS ORDERED: ALPRAZolam 0.25 MG TAB PO PRN (21:08)
[2018-09-13] MEDS ORDERED: ACETAMINOPHEN TAB 325 MG TAB PO PRN (21:08)
[2018-09-14 06:33] LABS: Mean Platelet Volume 6.4; Platelet Count 278 k/uL (150-450)
[2018-09-14] MEDS: HEPARIN SOD,PORK IN 0.45% NACL 25,000 UNIT in 0.45% NACL 1 250ML.BAG IV SCH (06:51)
[2018-09-14] MEDS ORDERED: SERTRALINE 50 MG TAB PO SCH (09:00)
[2018-09-14] MEDS ORDERED: AMIODARONE 200 MG TAB PO SCH (09:00)
[2018-09-14] MEDS ORDERED: METOPROLOL TARTRATE 25 MG TAB PO SCH (09:00)
[2018-09-14] MEDS ORDERED: CHOLECALCIFEROL 1,000 UNIT TAB PO SCH (09:00)
--- NOTE | 2018-09-14 09:11 | PN ---
PROGRESS NOTE Mrs. Melton is a 57-year-old female who presented yesterday with atrial flutter. She is back in sinus mechanism. She is feeling well this morning. Her breathing has been stable. She denies any dizziness or palpitation. She had an echocardiogram, revealed preserved left ventricular size and systolic function. She continued be on IV heparin as well as IV amiodarone drip. In addition to that, she is on aspirin, metoprolol tartrate 50 mg twice a day, and sertraline. PHYSICAL EXAMINATION: Blood pressure in the 130s with the heart rate in the 60s. LUNGS: Clear. HEART: Regular rate and rhythm. S1, S2. No S3. No rub. ABDOMEN: Soft, nontender. EXTREMITIES: No edema. IMPRESSION: Paroxysmal atrial flutter back in sinus mechanism. RECOMMENDATION: I will stop the IV heparin and IV amiodarone. Switch her to oral anticoagulation. Increase her level activity. I would expect she should be able to be discharged home today and followed as an outpatient. MMODL / IJN: [id number] /
[2018-09-14] MEDS: NITROGLYCERIN SL TABS 0.4 MG TAB SUBLINGUAL PRN ×3 (09:46→09:56)
[2018-09-14] MEDS: AMIODARONE 450 MG in DEXTROSE 5% IN WATER 250 ML IV SCH ×4 (09:50→09:51)
[2018-09-14 10:24] VITALS: RESP 16
[2018-09-14 10:26] VITALS: BP 113/59; PULSE 73
[2018-09-14] MEDS ORDERED: RIVAROXABAN 20 MG TAB PO SCH (17:30)
--- NOTE | 2018-09-15 07:35 | P.PN ---
Subjective Progress Note Date: 09/13/18 Hospital course:Patient is a very pleasant 57-year-old female came in with compensative chest pressure like sensation palpitations which started yesterday morning resolved and started having the symptoms again patient had some chills denied any significant fever, was comparing of dry cough and flulike symptoms recently, patient denied any dysuria chest x-rayand pneumonic process but there is a possibility of pulmonary edema BNP is a pending I cannot really assess his JVD because of her fast heart rate. Patient is found to be in atrial fibrillation patient is also complaining of chest pressure-like sensation on and off never had any history of coronary artery disease there is associated diaphoresis lightheadedness associated with the chest pressure. 09/13/2018 patient admitted with chest pain, a flutter, heart rate in the 130s placed on both heparin and Cardizem drips. During the night heart rate decreased to 70s, patient developed chest pain and Cardizem drip was discontinued. Heart rate this morning up to 140s, amiodarone drip initiated. Received a dose of Lasix IV push. Denies chest pain, palpitations or shortness of breath. Objective - Vital Signs Vital signs: Vital Signs Temp 98.2 F 09/13/18 12:00 Pulse 127 H 09/13/18 12:00 Resp 16 09/13/18 12:00 BP 109/73 09/13/18 12:00 Pulse Ox 97 09/13/18 12:00 Intake & Output 09/12/18 09/13/18 09/13/18 18:59 06:59 18:59 Intake Total 542.750 470.123 644.677 Output Total 800 1 Balance -257.250 469.123 644.677 Weight 122.47 kg 118.6 kg Intake: IV 320 30 0.9 160 Heparin Sod,Pork in 0.45% 160 NaCl 25,000 unit In 0.45 % NaCl 1 250ml.bag @ 8.1 UNITS/KG/HR 9.92 mls/hr IV .Q24H [facility] Rx#: [id number] Invasive Line 2 30 Amount of Fluid Infused ( 300 ml) Intake, IV Titration 20.750 150.123 94.677 Amount Diltiazem 50 mg In Sodium 20.750 Chloride 0.9% 40 ml @ 10 MG/HR 10 mls/hr IV .Q5H [facility] Rx#:[id number] Heparin Sod,Pork in 0.45% 150.123 94.677 NaCl 25,000 unit In 0.45 % NaCl 1 250ml.bag @ 8.1 UNITS/KG/HR 9.92 mls/hr IV .Q24H [facility] Rx#: [id number] Oral 222 520 Output: Urine 800 1 Other: Voiding Method Toilet # Voids 2 - Exam GENERAL: The patient is alert and oriented x3, sitting up in bed, no acute distress. HEENT: Pupils are round and equally reacting to light. EOMI. No scleral icterus. No conjunctival pallor. Normocephalic, atraumatic. Oral mucosa moist CARDIOVASCULAR: S1 and S2 present. No murmurs, rubs, or gallops. Tachycardic irregularly irregular rhythm PULMONARY: Chest is clear to auscultation, no wheezing or crackles. ABDOMEN: Soft, nontender, nondistended, normoactive bowel sounds. No palpable organomegaly. MUSCULOSKELETAL: No joint swelling or deformity. EXTREMITIES: No cyanosis, clubbing, or pedal edema. NEUROLOGICAL: Gross neurological examination did not reveal any focal deficits. SKIN: No rashes. - Labs CBC & Chem 7: 09/14/18 06:00 09/12/18 11:51 Labs: Abnormal Lab Results - Last 24 Hours (Table) 09/12/18 09/12/18 09/13/18 Range/Units 16:05 18:30 05:39 APTT 48.1 H (22.0-30.0) sec HDL Cholesterol 31 L (40-60) mg/dL U Marijuana (THC) Screen Detected H (NotDetected) 09/13/18 09/13/18 Range/Units 05:39 13:00 APTT 36.3 H 49.9 H (22.0-30.0) sec HDL Cholesterol (40-60) mg/dL U Marijuana (THC) Screen (NotDetected) Assessment and Plan Assessment: -Atrial flutter with rapid ventricular rate, accompanied by possible unstable angina or pressure secondary to palpitations. - Mild CHF, diastolic dysfunction with normal EF, secondary to the above, -ALLERGIC rhinitis and pharyngitis -Anxiety disorder -Marijuana use Plan: Continue current medication regime , aspirin, monitoring and symptomatic treatment. As mentioned above amiodarone drip currently been initiated. Maintain heparin drip. The impression and plan of care has been dictated as directed. : I performed a history and examination of this patient, discussed the same with the dictator. I agree with the dictator's note ,documented as a scribe. Any additional findings or plans will be noted.
--- NOTE | 2018-09-15 07:41 | P.DS ---
Providers Date of admission: 09/12/18 14:48 Expected date of discharge: 09/14/18 Attending physician: Tersesa Carolina Consults: 09/12/18 14:48 Consult Physician Urgent Consulting Provider: Deon Castillo Consult Reason/Comments: A flutter with RVR Do you want consulting provider notified?: Yes Primary care physician: Mj Escobar Hospital Course: -Final Diagnoses: -Atrial flutter with rapid ventricular rate, accompanied by possible unstable angina or pressure secondary to palpitations. - Mild CHF, diastolic dysfunction with normal EF, secondary to the above, -Possible gastroesophageal reflux disease -ALLERGIC rhinitis and pharyngitis -Anxiety disorder -Marijuana use Hospital course:Hospital course:Patient is a very pleasant 57-year-old female came in with compensative chest pressure like sensation palpitations which started yesterday morning resolved and started having the symptoms again patient had some chills denied any significant fever, was comparing of dry cough and flulike symptoms recently, patient denied any dysuria chest x-rayand pneumonic process but there is a possibility of pulmonary edema BNP is a pending I cannot really assess his JVD because of her fast heart rate. Patient is found to be in atrial fibrillation patient is also complaining of chest pressure-like sensation on and off never had any history of coronary artery disease there is associated diaphoresis lightheadedness associated with the chest pressure. 09/13/2018 patient admitted with chest pain, a flutter, heart rate in the 130s placed on both heparin and Cardizem drips. During the night heart rate decreased to 70s, patient developed chest pain and Cardizem drip was discontinued. Heart rate this morning up to 140s, amiodarone drip initiated. Received a dose of Lasix IV push. Denies chest pain, palpitations or shortness of breath. 09/14/2018 significant clinical improvement, maintained on oral amiodarone, metoprolol, aspirin. Anticoagulated on Xarelto. Converted to sinus rhythm. Denies chest pain, palpitations or increased shortness of breath. Ambulating in hallways, tolerating exertion well with no lightheadedness dizziness or focal deficits. Complaining of mild ALLERGIES/sinus congestion. OTC Claritin recommended. Cleared by cardiology for discharge. Patient is being discharged home in a stable condition with guarded prognosis. - Exam GENERAL: alert and oriented x3, no acute distress. CARDIOVASCULAR: S1 and S2 present. No murmurs, rubs, or gallops. Regular PULMONARY: Chest is clear to auscultation, no wheezing or crackles. ABDOMEN: Soft, nontender, nondistended, normoactive bowel sounds. No palpable organomegaly. NEUROLOGICAL: Gross neurological examination did not reveal any focal deficits. The impression and plan of care has been dictated as directed. : I performed a history and examination of this patient, discussed the same with the dictator. I agree with the dictator's note ,documented as a scribe. Any additional findings or plans will be noted. Time taken: 35 minutes. Patient Condition at Discharge: Stable Plan - Discharge Summary Discharge Rx Participant: Yes New Discharge Prescriptions: New Amiodarone [Cordarone] 200 mg PO BID #60 tab Metoprolol Tartrate [Lopressor] 25 mg PO BID #60 tab Rivaroxaban [Xarelto] 20 mg PO W/SUPPER #30 tab Omeprazole [PriLOSEC] 20 mg PO AC-BID #60 cap Continue Sertraline HCl [Zoloft] 50 mg PO DAILY Cholecalciferol [Vitamin D3] 1,000 unit PO DAILY Discharge Medication List Sertraline HCl [Zoloft] 50 mg PO DAILY 02/21/18 [History] Cholecalciferol [Vitamin D3] 1,000 unit PO DAILY 09/12/18 [History] Amiodarone [Cordarone] 200 mg PO BID #60 tab 09/14/18 [Rx] Metoprolol Tartrate [Lopressor] 25 mg PO BID #60 tab 09/14/18 [Rx] Omeprazole [PriLOSEC] 20 mg PO AC-BID #60 cap 09/14/18 [Rx] Rivaroxaban [Xarelto] 20 mg PO W/SUPPER #30 tab 09/14/18 [Rx] Follow up Appointment(s)/Referral(s): Elliot Acuna MD [STAFF PHYSICIAN] - 09/26/18 4:00 pm (Wednesday) Mj Escobar DO [Primary Care Provider] - 09/21/18 1:20 pm ([phone] Wednesday with Zhane HAYES) Ambulatory/Diagnostic Orders: Complete Blood Count w/diff [LAB.AMB] Time Frame: 3 Days, Location: None Selected Patient Instructions/Handouts: A-fib (Atrial Fibrillation) (DC), Safe Use of Anticoagulants (DC) Discharge Disposition: HOME SELF-CARE
--- NOTE | 2018-09-15 15:15 | CDI ---
Documentation Clarification Form Date: 09/15/18 From: Hilary Sherif Reina Long, Building Construction Contractor Hours-8:30 am & 5 pm M-F Admit Date: 09/12/2018 2:48:00 PM Patient Name: Kadie Melton Visit Number: [id number] Discharge Date: 09/14/2018 12:26:00 PM ATTENTION: The Clinical Documentation Specialists (CDI) and [facility] Coding Staff appreciate your assistance in clarifying documentation. Please respond to the clarification below the line at the bottom and electronically sign. The CDI & [facility] Coding staff will review the response and follow-up if needed. Please note: Queries are made part of the Legal Health Record. If you have any questions, please contact the author of this message via ITS. Dr. Elliot Acuna Atrial Flutter is documented in the ED Note, consult, PNs & DS. History/Risk factors: [place], paroxysmal A fib, HTN, mild diastolic CHF Clinical Indicators: Rate 145 in ER EKG/telemetry: Atrial flutter with 2:1 AV conduction. atrial flutter w 4:1 AV conduction, Treatment: IV Cardizem and Heparin, IV Amiodarone In your professional opinion, in order to capture the severity of condition; can you please clarify the type of Atrial Flutter if known? Typical/Type I Atypical/Type II Other, please specify Unable to determine MTDD
--- NOTE | 2018-09-15 15:26 | CDI ---
Documentation Clarification Form Date: 09/15/18 From: Hilary Sherif Reina Long, Tongue Lining Stitcher Hours-8:30 am & 5 pm M-F Admit Date: 09/12/2018 2:48:00 PM Patient Name: Kadie Melton Visit Number: [id number] Discharge Date: 09/14/2018 12:26:00 PM ATTENTION: The Clinical Documentation Specialists (CDI) and [facility] Coding Staff appreciate your assistance in clarifying documentation. Please respond to the clarification below the line at the bottom and electronically sign. The CDI & [facility] Coding staff will review the response and follow-up if needed. Please note: Queries are made part of the Legal Health Record. If you have any questions, please contact the author of this message via ITS. Dr. Elliot Acuna Mild CHF, diastolic dysfunction is documented in the 09/13 PN and DS. History/Risk Factors: atrial flutter/fibrillation, HTN VS/Pulse OX: P-149, R-18, BP-102/90 BNP: 4640 Echocardiogram Results: left ventricular systolic function w EF between 55-60% Chest X Ray: New mild central vascular congestion felt present Treatment: Per your consult "give the patient a one-time dose of IV Lasix In your professional opinion, can you please clarify the acuity and type of CHF if known? Diastolic Heart Failure: Acute Chronic Acute on Chronic Unable to Determine Other, please specify MTDD
--- NOTE | 2018-09-29 15:13 | P.PN ---
Progress Note - Text Progress Note Date: 09/29/18 This is an addendum to the cardiology progress note and consultation dictated earlier. Patient had atrial flutter, typical, congestive heart failure, diastolic acute on chronic. DNP note has been reviewed, I agree with a documented findings and plan of care. Patient was seen and examined.
== END 2018-09-14 12:26 | disposition home or self-care (01) | DRG 308 ==
LOC: EC 11:34 → 3SCARD 14:48
PROVIDERS: ADMIT Internal Medicine; ATTEND Internal Medicine
DX: I48.3 Typical atrial flutter (principal); I50.33 Acute on chronic diastolic (congestive) heart failure; I20.0 Unstable angina; I11.0 Hypertensive heart disease with heart failure; I48.0 Paroxysmal atrial fibrillation; I45.10 Unspecified right bundle-branch block; E78.5 Hyperlipidemia, unspecified; J02.9 Acute pharyngitis, unspecified; J30.9 Allergic rhinitis, unspecified; F41.9 Anxiety disorder, unspecified; Z79.899 Other long term (current) drug therapy; Z90.49 Acquired absence of other specified parts of digestive tract; Z98.890 Other specified postprocedural states; Z88.5 Allergy status to narcotic agent; Z91.040 Latex allergy status; Z82.49 Family history of ischemic heart disease and other diseases of the circulatory system
CPT/HCPCS: 36415; 71046; 80053; 80061; 80306; 81003; 82550; 82553; 83735; 83880; 84439; 84443; 84481; 84484; 85025; 85049; 85379; 85610; 85730; 93005; 93306; 96365; 96366; 96376; 99291

== ENCOUNTER → 2018-11-09 | Outpatient (CLI) | payer BC ==
[2018-11-09 11:31] LABS: Albumin 4.3 g/dL (3.80-4.90); Albumin/Globulin Ratio 1.79 (1.60-3.17); Anion Gap 6.3 mmol/L (4.00-12.00); Calcium 9.3 mg/dL (8.7-10.3); Carbon Dioxide 28.7 mmol/L (21.6-31.8); Globulin 2.4 g/dL (1.6-3.3); Potassium 4.3 mmol/L (3.5-5.5); Total Bilirubin 0.4 mg/dL (0.3-1.2); Total Protein 6.7 g/dL (6.2-8.2)
== END | disposition home or self-care (01) ==
LOC: LABWHC1 07:18
PROVIDERS: ATTEND Internal Medicine Interventional Cardiology
DX: I48.3 Typical atrial flutter (principal)
CPT/HCPCS: 36415; 80053; 84443

== ENCOUNTER → 2019-07-10 | Outpatient (CLI) | payer BC ==
--- NOTE | 2019-07-11 13:41 | MM ---
Reason for exam: screening (asymptomatic). Last mammogram was performed 1 year and 9 months ago. Physical Findings: A clinical breast exam by your physician is recommended on an annual basis and results should be correlated with mammographic findings. MG 3D Screening Mammo W/Cad Bilateral CC and MLO view(s) were taken. Prior study comparison: October 18, 2017, bilateral MG 3d screening mammo w/cad. December 13, 2015, bilateral MG 3d screening mammo w/cad. There are scattered fibroglandular densities. There is no discrete abnormality. ASSESSMENT: Negative, BI-RAD 1 RECOMMENDATION: Routine screening mammogram of both breasts in 1 year.
== END ==
LOC: RADMAMWWP 16:23
PROVIDERS: ATTEND Family Medicine
DX: Z12.31 Encounter for screening mammogram for malignant neoplasm of breast (principal)
CPT/HCPCS: 77063; 77067

== ENCOUNTER 2020-12-04 09:10 | Observation (INO) | payer BC ==
[2020-12-04] MEDS ORDERED: ASPIRIN 81 MG PO STA (09:37)
[2020-12-04] MEDS ORDERED: MAG HYDROX/AL HYDROX/SIMETH 30 ML, HYOSCYAMINE ELIXIR 10 ML PO STA ×2 (09:37)
[2020-12-04 09:56] LABS: Basophils # (A) 0.1 k/uL (0-0.2); Basophils % (A) 1 %; Eosinophils # (A) 0.2 k/uL (0-0.7); Eosinophils % (A) 3 %; HCT 42.8 % (34.0-46.0); HGB 14.5 gm/dL (11.4-16.0); Lymphocytes # (A) 1.5 k/uL (1.0-4.8); Lymphocytes % (A) 18 %; MCH 30.4 pg (25.0-35.0); MCV 89.5 fL (80.0-100.0); Mean Platelet Volume 6.7; Monocytes # (A) 0.5 k/uL (0-1.0); Monocytes % (A) 7 %; Neutrophils # (A) 5.7 k/uL (1.3-7.7); Neutrophils % (A) 70 %; Platelet Count 316 k/uL (150-450); RBC 4.78 m/uL (3.80-5.40); WBC 8.1 k/uL (3.8-10.6)
--- NOTE | 2020-12-04 09:59 | XR ---
EXAMINATION TYPE: XR chest 2V DATE OF EXAM: 12/04/2020 COMPARISON: 09/12/18 HISTORY: Shortness of breath TECHNIQUE: Frontal and lateral views of the chest are obtained. FINDINGS: Scattered senescent parenchymal changes noted. Hyperinflation compatible with COPD. No evidence for infiltrate. No evidence for atelectasis. Heart size is stable. Mediastinal structures are stable and grossly unremarkable. No evidence for hilar prominence. Degenerative changes dorsal spine. IMPRESSION: 1. No evidence for acute pulmonary disease.
--- NOTE | 2020-12-04 10:01 | ED ---
Chest Pain HPI - General Source: patient, RN notes reviewed Mode of arrival: ambulatory Limitations: no limitations <Mj Gorman - Last Filed: 12/04/20 11:42> <No Ritter - Last Filed: 12/07/20 14:38> - General Chief Complaint: Chest Pain Stated Complaint: Chest pain/sob/diarrhea Time Seen by Provider: 12/04/20 09:21 - History of Present Illness Initial Comments: This is a 60-year-old female presents emergency Department chief complaint of chest discomfort, shortness of breath. Patient states she's been suffering with a hoarse voice, chest discomfort for a while but states has worsened states that she has some exertional symptoms. Patient does have a history of A. fib flutter on Xarelto metoprolol. Patient denies any fevers or chills no severe productive cough. She's tried some Mucinex felt there was just related to ALLERGIES. She has upper abdominal discomfort no lower abdominal pain denies any vomiting. Patient has significant family cardiac history. (Mj Gorman) - Related Data Home Medications Medication Instructions Recorded Confirmed FLUoxetine HCL [PROzac] 20 mg PO DAILY 12/04/20 12/04/20 Previous Rx's Medication Instructions Recorded Metoprolol Tartrate [Lopressor] 25 mg PO BID #60 tab 09/14/18 Rivaroxaban [Xarelto] 20 mg PO W/SUPPER #30 tab 09/14/18 Famotidine [Pepcid] 20 mg PO BID #60 tab 12/05/20 Allergies Allergy/AdvReac Type Severity Reaction Status Date / Time codeine Allergy Itching Verified 12/04/20 10:05 hydrocodone Allergy Rash/Hives Verified 12/04/20 10:05 latex Allergy Rash/Hives Verified 12/04/20 10:05 Review of Systems ROS Other: All systems not noted in ROS Statement are negative. <Mj Gorman - Last Filed: 12/04/20 11:42> ROS Other: All systems not noted in ROS Statement are negative. <No Ritter - Last Filed: 12/07/20 14:38> ROS Statement: Those systems with pertinent positive or pertinent negative responses have been documented in the HPI. EKG Findings - EKG Comments: EKG Findings:: EKG performed at 9:23 sinus bradycardia with incomplete right bundle rate of 59 MN 204 QRS 112, QT/QTC 450/445 - EKG Results: EKG: interpreted by ERMD <Mj Gorman - Last Filed: 12/04/20 11:42> Past Medical History Past Medical History: Hypertension History of Any Multi-Drug Resistant Organisms: None Reported Past Surgical History: Cholecystectomy, Tonsillectomy Past Psychological History: Anxiety Smoking Status: Current every day smoker Past Alcohol Use History: None Reported Past Drug Use History: None Reported - Past Family History Mother Family Medical History: Hypertension, Myocardial Infarction ([place]) Father Family Medical History: Hypertension, Myocardial Infarction ([place]) <Mj Gorman - Last Filed: 12/04/20 11:42> General Exam Limitations: no limitations General appearance: alert, in no apparent distress Head exam: Present: atraumatic, normocephalic, normal inspection Eye exam: Present: normal appearance, PERRL, EOMI. Absent: scleral icterus, conjunctival injection, periorbital swelling ENT exam: Present: normal exam, normal oropharynx, mucous membranes moist Neck exam: Present: normal inspection. Absent: tenderness, lymphadenopathy Respiratory exam: Present: normal lung sounds bilaterally. Absent: respiratory distress, wheezes, rales, rhonchi, stridor Cardiovascular Exam: Present: regular rate, normal rhythm, normal heart sounds. Absent: systolic murmur, diastolic murmur, rubs, gallop, clicks GI/Abdominal exam: Present: soft, tenderness (Mild epigastric), normal bowel sounds. Absent: distended, guarding, rebound, rigid <Mj Gorman - Last Filed: 12/04/20 11:42> Course Vital Signs 12/04/20 12/04/20 12/04/20 09:15 09:47 13:07 Temperature 98 F Pulse Rate 58 L 56 L 54 L Respiratory 18 18 16 Rate Blood Pressure 135/86 127/96 123/107 O2 Sat by Pulse 100 96 96 Oximetry 12/04/20 13:36 Temperature 98 F Pulse Rate 54 L Respiratory 16 Rate Blood Pressure 123/107 O2 Sat by Pulse 96 Oximetry Chest Pain MDM <Mj Gorman - Last Filed: 12/04/20 11:42> <No Ritter - Last Filed: 12/07/20 14:38> - MDM Patient's workup is negative this time though patient has significant past medical history along family history. Patient will be admitted for cardiac (Mj Gorman) I was available for consultation in the emergency department. The history and physical exam were done by the midlevel provider. I was consulted for this patients care. I reviewed the case with the midlevel provider and based on their presentation of the patient, I agree with the assessment, medical decision making and plan of care as documented. Chart was dictated using [employer] dictation software. Attempts were made to correct any dictation errors however some typographical errors may persist. Patient was seen during a national state of emergency due to the Covid-19 pandem ic. (No Ritter) Disposition <Mj Gorman - Last Filed: 12/04/20 11:42> <No Ritter - Last Filed: 12/07/20 14:38> Clinical Impression: Chest pain Disposition: ADMITTED IP TO THIS HOSP Condition: Fair
[2020-12-04 10:05] LABS: INR 1.1 (<1.2); Partial Thromboplastin Time 30.9 sec (22.0-30.0); Prothrombin Time 11.8 sec (9.0-12.0)
[2020-12-04 10:21] LABS: Albumin 4.6 g/dL (3.5-5.0); Calcium 9.7 mg/dL (8.4-10.2); Potassium 4.3 mmol/L (3.5-5.1); Total Bilirubin 0.6 mg/dL (0.2-1.3); Total Protein 8.3 g/dL (6.3-8.2)
[2020-12-04] MEDS ORDERED: NITROGLYCERIN SL TABS 0.4 MG TAB SUBLINGUAL PRN (11:43)
[2020-12-04] MEDS ORDERED: PANTOPRAZOLE 40 MG/10 ML VIAL IVP STA (11:44)
--- NOTE | 2020-12-04 14:17 | P.CRDCN ---
History of Present Illness History of present illness: HISTORY OF PRESENTING ILLNESS This is a pleasant 60-year-old female past medical history significant for paroxysmal typical atrial flutter, hypertension and obesity. She follows in the office with Dr. Acuna. We have been asked to see in consultation for chest pain. She states for the past 2-3 days she has been experiencing symptoms of chest pain, cough, epigastric tenderness, sore throat and shortness of breath. She states her chest feels tight like something is squeezing her. The pain is sometimes worse with breathing. Not related to exertion or activity. She is bringing up some sputum that is clear. Most recent stress test performed in the office March 2020 with an exercise stress test the patient walked for 7-1/2 minutes with no evidence of stress-induced ischemia. Most recent echocardiogram obtained in the office March 2020 revealed preserved LV systolic function with ejection fraction 55%. DIAGNOSTICS EKG reveals sinus bradycardia heart rate 59 with right bundle branch block. Telemetry tracings indicate sinus mechanism. Chest xray negative for an acute cardiopulmonary process. Laboratory reviewed, CBC unremarkable, sodium 139, potassium 4.3, creatinine 1.12, magnesium 2.0, troponin negative x2, proBNP 89. Current cardiac medications include lopressor 25 mg BID and xarelto 20 mg daily. REVIEW OF SYSTEMS At the time of my exam: CONSTITUTIONAL: Denies fever or chills. CARDIOVASCULAR: Denies chest pain, shortness of breath, orthopnea, PND or palpi tations. RESPIRATORY: Complains of cough. GASTROINTESTINAL: Denies abdominal pain, diarrhea, constipation, nausea or vomiting. MUSCULOSKELETAL: Denies myalgias. NEUROLOGIC: Denies numbness, tingling, headacbe or weakness. ENDOCRINE: Denies fatigue, weight change, polydipsia or polyurina. GENITOURINARY: Denies burning, hematuria or urgency with micturation. HEMATOLOGIC: Denies history of anemia or bleeding. PHYSICAL EXAMINATION Blood pressure 123/107 heart rate 54 afebrile and maintaining oxygen saturation on room air. CONSTITUTIONAL: No apparent distress. HEENT: Head is normocephalic. Pupils are equal, round. Sclerae anicteric. Mucous membranes of the mouth are moist. No JVD. No carotid bruit. CHEST EXAMINATION: Lungs are clear to auscultation. No chest wall tenderness is noted on palpation or with deep breathing. HEART EXAMINATION: Regular rate and rhythm. S1, S2 heard. No murmurs, gallops or rub. ABDOMEN: Soft, tenderness noted in the epigastric region. Positive bowel sounds. EXTREMITIES: 2+ peripheral pulses, no lower extremity edema and no calf tenderness. NEUROLOGIC EXAMINATION: Patient is awake, alert and oriented x3. ASSESSMENT Chest pain, atypical for angina Epigastic tenderness Paroxysmal atrial flutter, typical. Currently in SR on xarelto Hypertension PLAN She is tender in the epigastric region on exam, atypical for angina. Symptoms seem to be related to underlying viral infection and pain possibly from coughing. Continue to obtain serial cardiac enzymes to rule out an acute event. Echocardiogram has been ordered and will be reviewed. Continue lopressor and xarelto as previously ordered. Thank you kindly for this consultation. Nurse Practitioner note has been reviewed, I agree with a documented findings and plan of care. Patient was seen and examined. Past Medical History Past Medical History: Atrial Fibrillation, Atrial Flutter, Heart Failure, GERD/Reflux, Hypertension Additional Past Medical History / Comment(s): Occasional bilateral ankle/pedal edema, gastritis, allergic rhinitis, Aflutter with RVT and mild CHF History of Any Multi-Drug Resistant Organisms: None Reported Past Surgical History: Cholecystectomy, Tonsillectomy, Tubal Ligation Additional Past Surgical History / Comment(s): EGD, colonoscopy. Past Anesthesia/Blood Transfusion Reactions: No Reported Reaction Additional Past Anesthesia/Blood Transfusion Reaction / Comment(s): Pt states she recieved blood as an but does not know reason. Past Psychological History: Anxiety Additional Psychological History / Comment(s): Pt resides with her spouse. She is independent. Smoking Status: Former smoker Past Alcohol Use History: Rare Additional Past Alcohol Use History / Comment(s): Pt smoke alittle as a teen. Past Drug Use History: None Reported - Past Family History Mother Family Medical History: No Reported History Additional Family Medical History / Comment(s): Mother in her sleep of unknown cause. Father Family Medical History: Hypertension, Myocardial Infarction ([place]) Additional Family Medical History / Comment(s): Father had a [place] in his 60s. Medications and Allergies Home Medications Medication Instructions Recorded Confirmed Type Metoprolol Tartrate [Lopressor] 25 mg PO BID #60 tab 09/14/18 12/04/20 Rx Rivaroxaban [Xarelto] 20 mg PO W/SUPPER #30 tab 09/14/18 12/04/20 Rx FLUoxetine HCL [PROzac] 20 mg PO DAILY 12/04/20 12/04/20 History Allergies Allergy/AdvReac Type Severity Reaction Status Date / Time codeine Allergy Itching Verified 12/04/20 10:05 hydrocodone Allergy Rash/Hives Verified 12/04/20 10:05 latex Allergy Rash/Hives Verified 12/04/20 10:05 Physical Exam Vitals: Vital Signs Temp Pulse Resp BP Pulse Ox 12/04/20 13:07 54 L 16 123/107 96 12/04/20 09:47 56 L 18 127/96 96 12/04/20 09:15 98 F 58 L 18 135/86 100 Intake and Output 12/03/20 12/04/20 12/04/20 22:59 06:59 14:59 Other: Weight 109.769 kg Results 12/04/20 09:46 12/04/20 09:46 Cardiac Enzymes 12/04/20 12/04/20 Range/Units 09:46 09:46 AST 24 (14-36) U/L Troponin I <0.012 (0.000-0.034) ng/mL Coagulation 12/04/20 Range/Units 09:46 PT 11.8 (9.0-12.0) sec APTT 30.9 H (22.0-30.0) sec CBC 12/04/20 Range/Units 09:46 WBC 8.1 (3.8-10.6) k/uL RBC 4.78 (3.80-5.40) m/uL Hgb 14.5 (11.4-16.0) gm/dL Hct 42.8 (34.0-46.0) % Plt Count 316 (150-450) k/uL Comprehensive Metabolic Panel 12/04/20 Range/Units 09:46 Sodium 139 (137-145) mmol/L Potassium 4.3 (3.5-5.1) mmol/L Chloride 106 (98-107) mmol/L Carbon Dioxide 21 L (22-30) mmol/L BUN 15 (7-17) mg/dL Creatinine 1.12 H (0.52-1.04) mg/dL Glucose 101 H (74-99) mg/dL Calcium 9.7 (8.4-10.2) mg/dL AST 24 (14-36) U/L ALT 13 (4-34) U/L Alkaline Phosphatase 106 (38-126) U/L Total Protein 8.3 H (6.3-8.2) g/dL Albumin 4.6 (3.5-5.0) g/dL Current Medications Generic Name Dose Route Start Last Admin Trade Name Freq PRN Reason Stop Dose Admin Fluoxetine HCl 20 mg 12/05/20 09:00 Fluoxetine Hcl 20 Mg Cap PO DAILY SELVIN Metoprolol Tartrate 25 mg 12/04/20 21:00 Metoprolol Tartrate 25 Mg Tab PO BID SELVIN Nitroglycerin 0.4 mg 12/04/20 11:43 Nitroglycerin Sl Tabs 0.4 Mg Tab SUBLINGUAL Q5M PRN Chest Pain Pantoprazole Sodium 40 mg 12/05/20 09:00 Pantoprazole 40 Mg/10 Ml Vial IVP DAILY SELVIN Rivaroxaban 20 mg 12/04/20 17:30 Rivaroxaban 20 Mg Tab PO W/SUPPER SELVIN Intake and Output 12/03/20 12/04/20 12/04/20 22:59 06:59 14:59 Other: Weight 109.769 kg Patient Weight 12/05/20 06:59 Weight 109.769 kg 12/04/20 09:46 12/04/20 09:46
--- NOTE | 2020-12-04 17:03 | P.HPIM ---
History of Present Illness H&P Date: 12/04/20 Chief Complaint: Chest tightness History of presenting complaint: This is a 60-year-old patient of Dr. Gonzalez. Chronic stable medical conditions include atrial flutter fibrillation, GERD, hypertension, gastritis anxiety. For about 3 days patient started feeling episodes of some chest tightness. Not this is really related to exertion. No radiation. Having also some stomach cramps. Episodes of perspiration. Has a bit of a raspy voice. A bit short of breath. Patient did receive a [employer] COVID 19 vaccine on November 15. She also been having some chills. Symptoms are most significant yesterday that she had to stay back in bed. Review of systems: GEN.: Tired fever or chills EYES: None HEENT: As above NECK: None RESPIRATORY: As above CARDIOVASCULAR: [As above GASTROINTESTINAL: None GENITOURINARY: None MUSCULOSKELETAL: None LYMPHATICS: None HEMATOLOGICAL: None PSYCHIATRY: None NEUROLOGICAL: None Past medical history to include: Atrial flutter fibrillation, GERD, hypertension, gastritis, ALLERGIC rhinitis, anxiety Social history: . 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 Does not smoke. Alcohol rarely. Physical examination: VITAL SIGNS: 98, 58, 18, 1 35/86, 100% on room air GENERAL: BMI 35.7, laying in bed, awake. EYES: Pupils equal. Conjunctiva normal. HEENT: External appearance of nose and ears normal, oral cavity grossly normal. NECK: JVD not raised; masses not palpable. HEART: First and second heart sounds are normal; no edema. LUNGS: Respiratory rate normal; clear to auscultation. ABDOMEN: Soft, nontender, liver spleen not palpable, no masses palpable. PSYCH: Alert and oriented x3; mood and affect normal. NEUROLOGICAL: Cranial nerves grossly intact; no facial asymmetry, power and sensation grossly intact. LYMPHATICS: No lymph nodes palpable in the axilla and neck INVESTIGATIONS, reviewed in the clinical context: WBC 8.1 hemoglobin 14.5 platelets 316 potassium 4.3 creatinine 1.12 Troponin I 3 negative proBNP 89 Influenza type A, type B, RSV, COVID 19: Not detected EKG tracing personally reviewed by me-sinus rhythm, incomplete right bundle- branch block Chest x-ray film personally reviewed by me-: Questionable infiltrate Assessment and plan: -This is a patient presented to 3 days of some chest tightness not related to exertion, stomach cramps, episodes of perspiration, raspy voice, chills shortness of breath. Patient's clinical presentation patient is more compatible with a viral syndrome with possible viral pneumonitis. This does not appear to be a primary cardiac event. Patient's testing for influenza and COVID 19 of both negative -Atypical chest pain likely from pneumonitis. Will get a cardiology opinion -Paroxysmal atrial flutter fibrillation. Continue xarelto Lopressor. Telemetry. Currently sinus rhythm -Obesity BMI 35.7. Weight loss measures follow-up with PCP as an outpatient -Anxiety not otherwise specified. Prozac -GERD. Add Pepcid Care was discussed with the patient. Questions answered. Await further input from cardiology. Past Medical History Past Medical History: Atrial Fibrillation, Atrial Flutter, Heart Failure, GERD/Reflux, Hypertension Additional Past Medical History / Comment(s): Occasional bilateral ankle/pedal edema, gastritis, allergic rhinitis, Aflutter with RVT and mild CHF History of Any Multi-Drug Resistant Organisms: None Reported Past Surgical History: Cholecystectomy, Tonsillectomy, Tubal Ligation Additional Past Surgical History / Comment(s): EGD, colonoscopy. Past Anesthesia/Blood Transfusion Reactions: No Reported Reaction Additional Past Anesthesia/Blood Transfusion Reaction / Comment(s): Pt states she recieved blood as an infant but does not know reason. Past Psychological History: Anxiety Additional Psychological History / Comment(s): Pt resides with her spouse. She is independent. Smoking Status: Former smoker Past Alcohol Use History: Rare Additional Past Alcohol Use History / Comment(s): Pt smoke alittle as a teen. Past Drug Use History: None Reported - Past Family History Mother Family Medical History: No Reported History Additional Family Medical History / Comment(s): Mother in her sleep of unknown cause. Father Family Medical History: Hypertension, Myocardial Infarction ([place]) Additional Family Medical History / Comment(s): Father had a [place] in his 60s. Medications and Allergies Home Medications Medication Instructions Recorded Confirmed Type Metoprolol Tartrate [Lopressor] 25 mg PO BID #60 tab 09/14/18 12/04/20 Rx Rivaroxaban [Xarelto] 20 mg PO W/SUPPER #30 tab 09/14/18 12/04/20 Rx FLUoxetine HCL [PROzac] 20 mg PO DAILY 12/04/20 12/04/20 History Allergies Allergy/AdvReac Type Severity Reaction Status Date / Time codeine Allergy Itching Verified 12/04/20 10:05 hydrocodone Allergy Rash/Hives Verified 12/04/20 10:05 latex Allergy Rash/Hives Verified 12/04/20 10:05 Physical Exam Vitals: Vital Signs Temp Pulse Pulse Resp BP BP Pulse Ox 12/04/20 15:00 97.8 F 48 L 18 128/82 99 12/04/20 13:36 98 F 54 L 16 123/107 96 12/04/20 13:07 54 L 16 123/107 96 12/04/20 09:47 56 L 18 127/96 96 12/04/20 09:15 98 F 58 L 18 135/86 100 Intake and Output 12/04/20 12/04/20 12/04/20 06:59 14:59 22:59 Other: Weight 109.769 kg Results CBC & Chem 7: 12/04/20 09:46 12/04/20 09:46 Labs: Abnormal Lab Results - Last 24 Hours (Table) 12/04/20 12/04/20 Range/Units 09:46 09:46 APTT 30.9 H (22.0-30.0) sec Carbon Dioxide 21 L (22-30) mmol/L Creatinine 1.12 H (0.52-1.04) mg/dL Glucose 101 H (74-99) mg/dL Total Protein 8.3 H (6.3-8.2) g/dL Thrombosis Risk Factor Assmnt - Choose All That Apply Any of the Below Risk Factors Present?: Yes Each Factor Represents 1 point: Age 41-60 years, Obesity (BMI >25) Other Risk Factors: No Other congenital or acquired thrombophilia - If yes, enter type in comment: No Thrombosis Risk Factor Assessment Total Risk Factor Score: 2 Thrombosis Risk Factor Assessment Level: Low Risk
[2020-12-04] MEDS ORDERED: RIVAROXABAN 20 MG TAB PO SCH (17:30)
[2020-12-04] MEDS: METOPROLOL TARTRATE 25 MG TAB PO SCH (20:57)
[2020-12-04] MEDS: FAMOTIDINE 20 MG TAB PO SCH (20:57)
[2020-12-05 06:30] LABS: Cholesterol 190 mg/dL (<200); HDL Cholesterol 46 mg/dL (40-60); LDL Cholesterol,Calculated 112 mg/dL (0-99); Triglycerides 161 mg/dL (<150)
[2020-12-05] MEDS: FAMOTIDINE 20 MG TAB PO SCH (07:49)
--- NOTE | 2020-12-05 08:00 | ECHOF ---
Referral Reason:chest pain MEASUREMENTS -------- HEIGHT: 175.3 cm WEIGHT: 109.8 kg BP: RVIDd: 3.4 cm (< 3.3) IVSd: 1.2 cm (0.6 - 1.1) LVIDd: 4.4 cm (3.9 - 5.3) LVPWd: 1.4 cm (0.6 - 1.1) IVSs: 1.4 cm LVIDs: 3.5 cm LVPWs: 1.3 cm LAESV Index (A-L): 24.63 ml/m Ao Diam: 2.6 cm (2.0 - 3.7) MV EXCURSION: 16.659 mm (> 18.000) MV EF SLOPE: 71 mm/s (70 - 150) EPSS: 0.5 cm MV E Earnest: 0.52 m/s MV DecT: 228 ms MV A Earnest: 0.73 m/s MV E/A Ratio: 0.72 RAP: 5.00 mmHg RVSP: 11.77 mmHg FINDINGS -------- Sinus rhythm. This was a technically adequate study. LV size, wall thickness and systolic function are normal, with an EF greater than 55%. The left kavita tricular size is normal. The diastolic filling pattern is normal for the age of the patient 7.86. The right ventricle is normal in size. Normal LA size by volume 22+/-6 ml/m2. The right atrial size is normal. The aortic valve is trileaflet, and appears structurally normal. No aortic stenosis or regurgitation. The mitral valve is normal. Mild mitral regurgitation is present. The tricuspid valve appears structurally normal. Mild tricuspid regurgitation present. Right vent ricular systolic pressure is normal at < 35 mmHg. There is no pulmonic regurgitation present. The aortic root size is normal. There is no pericardial effusion. CONCLUSIONS -------- 1. LV size, wall thickness and systolic function are normal, with an EF greater than 55%. 2. Normal LA size by volume 22+/-6 ml/m2. 3. The aortic valve is trileaflet, and appears structurally normal. No aortic stenosis or regurgitati on. 4. Mild mitral regurgitation is present. 5. Mild tricuspid regurgitation present. 6. There is no pericardial effusion. ASSORTER: Valery Watters RDCS
[2020-12-05] MEDS: METOPROLOL TARTRATE 25 MG TAB PO SCH (08:09)
[2020-12-05] MEDS ORDERED: PANTOPRAZOLE 40 MG/10 ML VIAL IVP SCH (09:00)
[2020-12-05] MEDS ORDERED: ASPIRIN 325 MG TAB PO SCH (09:00)
[2020-12-05] MEDS ORDERED: FLUoxetine HCL 20 MG CAP PO SCH (09:00)
--- NOTE | 2020-12-05 09:31 | P.PN ---
Subjective HISTORY OF PRESENTING ILLNESS This is a pleasant 60-year-old female past medical history significant for paroxysmal typical atrial flutter, hypertension and obesity. She follows in the office with Dr. Acuna. We have been asked to see in consultation for chest pain. She states for the past 2-3 days she has been experiencing symptoms of chest pain, cough, epigastric tenderness, sore throat and shortness of breath. She states her chest feels tight like something is squeezing her. The pain is sometimes worse with breathing. Not related to exertion or activity. She is bringing up some sputum that is clear. Most recent stress test performed in the office March 2020 with an exercise stress test the patient walked for 7-1/2 minutes with no evidence of stress-induced ischemia. Most recent echocardiogram obtained in the office March 2020 revealed preserved LV systolic function with ejection fraction 55%. 12/05/2020 Pt seen and examined resting comfortably laying flat in bed in no acute distress. She has had no further symptoms of chest discomfort. Breathing is stable. She is concerned about her worsening sore throat and scratchy voice. Blood pressure 99/58 heart rate 47 afebrile and maintaining oxygen saturation on room air. Echocardiogram obtained reveals preserved LV systolic function with ejection fraction greater than 55% with mild MR and mild TR. Laboratory data reviewed, cardiac enzymes negative 3, LDL 112 and HDL 46.Telemetry tracings reveal persistent SR. PHYSICAL EXAMINATION CONSTITUTIONAL: No apparent distress. HEENT: Head is normocephalic. Pupils are equal, round. Sclerae anicteric. Mucous membranes of the mouth are moist. No JVD. No carotid bruit. CHEST EXAMINATION: Lungs are clear to auscultation. No chest wall tenderness is noted on palpation or with deep breathing. HEART EXAMINATION: Regular rate and rhythm. S1, S2 heard. No murmurs, gallops or rub. EXTREMITIES: 2+ peripheral pulses, no lower extremity edema and no calf tenderness. ASSESSMENT Chest pain, atypical for angina Epigastic tenderness Paroxysmal atrial flutter, typical. Currently in SR on xarelto Hypertension Dyslipidemia PLAN ASCVD 10-year risk is 2.4%, recommend lifestyle modifications for lowering of LDL cholesterol less than 100. Stable from a cardiac perspective. She can be discharged home and follow up with Dr. Acuna in the office. Nurse Practitioner note has been reviewed, I agree with a documented findings and plan of care. Patient was seen and examined. Objective - Vital Signs Vital signs: Vital Signs Temp 97.7 F 12/05/20 01:34 Pulse 47 L 12/05/20 01:34 Resp 16 12/05/20 04:04 BP 99/58 12/05/20 01:34 Pulse Ox 97 12/05/20 01:34 Intake & Output 12/04/20 12/05/20 12/05/20 18:59 06:59 18:59 Weight 109.769 kg Other: Voiding Method Toilet # Voids 2 - Labs CBC & Chem 7: 12/04/20 09:46 12/04/20 09:46 Labs: Abnormal Lab Results - Last 24 Hours (Table) 12/04/20 12/04/20 12/04/20 Range/Units 09:46 09:46 09:46 APTT 30.9 H (22.0-30.0) sec Carbon Dioxide 21 L (22-30) mmol/L Creatinine 1.12 H (0.52-1.04) mg/dL Glucose 101 H (74-99) mg/dL Total Protein 8.3 H (6.3-8.2) g/dL Triglycerides 161 H (<150) mg/dL LDL Cholesterol, Calc 112 H (0-99) mg/dL
[2020-12-05 09:40] VITALS: BP 125/85; RESP 18; TEMP 97.5
[2020-12-05 09:44] VITALS: PULSE 48
[2020-12-05 13:29] VITALS: BMI 35.7
--- NOTE | 2020-12-05 23:17 | P.DS ---
Providers Date of admission: 12/04/20 12:13 Expected date of discharge: 12/05/20 Attending physician: Eldon Clement Consults: 12/04/20 11:43 Consult Physician Urgent Consulting Provider: Deon Castillo Consult Reason/Comments: chest pain Do you want consulting provider notified?: Yes Primary care physician: [facility]jasmin [facility] Course: Chief Complaint: Chest tightness History of presenting complaint: This is a 60-year-old patient of Dr. Gonzalez. Chronic stable medical conditions include atrial flutter fibrillation, GERD, hypertension, gastritis anxiety. For about 3 days patient started feeling episodes of some chest tightness. Not this is really related to exertion. No radiation. Having also some stomach cramps. Episodes of perspiration. Has a bit of a raspy voice. A bit short of breath. Patient did receive a [employer] COVID 19 vaccine on November 15. She also been having some chills. Symptoms are most significant yesterday that she had to stay back in bed. Patient is felt to have a acute viral syndrome. Known COVID. Seen by cardiology. Not for any further workup. We'll have the patient see ENT for her hoarse voice. Care was discussed with the patient. Questions answered. Consultation: Dr. Acuna from cardiology Past medical history to include: Atrial flutter fibrillation, GERD, hypertension, gastritis, ALLERGIC rhinitis, anxiety Social history: . 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 Does not smoke. Alcohol rarely. Physical examination: VITAL SIGNS: 97.5, 64, 18, 125/85, 97% room air GENERAL: sitting up, comfortable EYES: Pupils equal. Conjunctiva normal. HEENT: External appearance of nose and ears normal, oral cavity grossly normal. NECK: JVD not raised; masses not palpable. HEART: First and second heart sounds are normal; no edema. LUNGS: Respiratory rate normal; clear to auscultation. ABDOMEN: Soft, nontender, liver spleen not palpable, no masses palpable. PSYCH: Alert and oriented x3; mood and affect normal. INVESTIGATIONS, reviewed in the clinical context: 2-D echocardiogram: EF greater than 55%. WBC 8.1 hemoglobin 14.5 platelets 316 potassium 4.3 creatinine 1.12 Troponin I 3 negative proBNP 89 Influenza type A, type B, RSV, COVID 19: Not detected EKG tracing personally reviewed by me-sinus rhythm, incomplete right bundle- branch block Chest x-ray film personally reviewed by me-: Questionable infiltrate Assessment and plan: -This is a patient presented to 3 days of some chest tightness not related to exertion, stomach cramps, episodes of perspiration, raspy voice, chills shortness of breath. Patient's clinical presentation patient is more compatible with a viral syndrome with possible viral pneumonitis. This does not appear to be a primary cardiac event. Patient's testing for influenza and COVID 19 of both negative -Atypical chest pain likely from pneumonitis. No further cardiac workup per cardiology. -Paroxysmal atrial flutter fibrillation. Continue xarelto Lopressor. Telemetry. Currently sinus rhythm -Obesity BMI 35.7. Weight loss measures follow-up with PCP as an outpatient -Anxiety not otherwise specified. Prozac -GERD. Add Pepcid -Hoarse voice. Follow-up with ENT Dr. Sierra. Disposition: Home Patient Condition at Discharge: Fair Plan - Discharge Summary Discharge Rx Participant: No New Discharge Prescriptions: New Famotidine [Pepcid] 20 mg PO BID #60 tab Continue Metoprolol Tartrate [Lopressor] 25 mg PO BID #60 tab Rivaroxaban [Xarelto] 20 mg PO W/SUPPER #30 tab FLUoxetine HCL [PROzac] 20 mg PO DAILY Discharge Medication List Metoprolol Tartrate [Lopressor] 25 mg PO BID #60 tab 09/14/18 [Rx] Rivaroxaban [Xarelto] 20 mg PO W/SUPPER #30 tab 09/14/18 [Rx] FLUoxetine HCL [PROzac] 20 mg PO DAILY 12/04/20 [History] Famotidine [Pepcid] 20 mg PO BID #60 tab 12/05/20 [Rx] Follow up Appointment(s)/Referral(s): Elliot Acuna MD [STAFF PHYSICIAN] - 12/19/20 9:00 am Thanh Gonzalez MD [Primary Care Provider] - 1-2 days Con Benson DO [Doctor of Osteopathic Medicine] - 1 Week (hoarse voice) Discharge Disposition: HOME SELF-CARE
== END 2020-12-05 12:03 | disposition home or self-care (01) ==
LOC: EC 09:10 → 6NMEDSUR 12:13
PROVIDERS: ADMIT Hospitalist; ATTEND Hospitalist
DX: R07.89 Other chest pain (principal); I11.0 Hypertensive heart disease with heart failure; I50.9 Heart failure, unspecified; I48.3 Typical atrial flutter; I48.0 Paroxysmal atrial fibrillation; R49.0 Dysphonia; I45.10 Unspecified right bundle-branch block; R00.1 Bradycardia, unspecified; R10.816 Epigastric abdominal tenderness; J30.9 Allergic rhinitis, unspecified; Z20.822 Contact with and (suspected) exposure to COVID-19; K21.9 Gastro-esophageal reflux disease without esophagitis; F41.9 Anxiety disorder, unspecified; E66.9 Obesity, unspecified; Z68.35 Body mass index [BMI] 35.0-35.9, adult; Z79.01 Long term (current) use of anticoagulants; Z79.899 Other long term (current) drug therapy; Z91.040 Latex allergy status; Z88.5 Allergy status to narcotic agent; Z98.51 Tubal ligation status; Z87.19 Personal history of other diseases of the digestive system; Z90.49 Acquired absence of other specified parts of digestive tract; Z82.49 Family history of ischemic heart disease and other diseases of the circulatory system
CPT/HCPCS: 93005 ×2; 96374; 99285; 36415; 93306; 83880; 80061; 80053; 83690; 83735; 84484; 85025; 85610; 85730; 87636; 71046; G0378 ×2; C9113

== ENCOUNTER → 2021-01-03 | Outpatient (CLI) | payer BC ==
--- NOTE | 2021-01-08 08:12 | MM ---
Reason for exam: screening (asymptomatic). Last mammogram was performed 1 year and 6 months ago. History: Patient is postmenopausal. Physical Findings: A clinical breast exam by your physician is recommended on an annual basis and results should be correlated with mammographic findings. MG 3D Screening Mammo W/Cad Bilateral CC and MLO view(s) were taken. Prior study comparison: July 10, 2019, bilateral MG 3d screening mammo w/cad. October 18, 2017, bilateral MG 3d screening mammo w/cad. There are scattered fibroglandular densities. No significant changes when compared with prior studies. ASSESSMENT: Benign, BI-RAD 2 RECOMMENDATION: Routine screening mammogram of both breasts in 1 year.
== END | disposition home or self-care (01) ==
LOC: RADMAMWWP 14:17
PROVIDERS: ATTEND Family Medicine
DX: Z12.31 Encounter for screening mammogram for malignant neoplasm of breast (principal); Z78.0 Asymptomatic menopausal state
CPT/HCPCS: 77063; 77067

== ENCOUNTER 2021-06-25 09:45 | Observation (INO) | payer BC ==
--- NOTE | 2021-06-25 10:38 | ED ---
General Adult HPI - General Chief complaint: Fall Stated complaint: Fall/Hand injury/memory loss Time Seen by Provider: 06/25/21 10:23 Source: patient Mode of arrival: ambulatory Limitations: no limitations - History of Present Illness Initial comments: Dictation was produced using [employer] dictation software. please excuse any grammatical, word or spelling errors. Chief Complaint: 60-year-old female presents to the emergency department after fall History of Present Illness: Patient is a 60-year-old female she presents today after she allegedly fell. Patient reports that her left that around 5:15 AM. Patient woke up on the floor at 5:45 AM. Patient woke up with some left hand pain. She also felt diaphoretic. She does not really know what happened. She doesn't have a history of sleepwalking. Denies any alcohol last night. Patient states she woke up with her pants soaked in urine. At this point patient feels okay. Denies any head pain. She does complain of some mild left hand pain. No one was home to with this event. Patient does not have any history of seizures. She takes and evaluation medications. She takes her also for history of atrial flutter. No recent medication changes. The ROS documented in this emergency department record has been reviewed and confirmed by me. Those systems with pertinent positive or negative responses have been documented in the HPI. All other systems are other negative and/or noncontributory. PHYSICAL EXAM: General Impression: Alert and oriented x3, not in acute distress HEENT: Normocephalic atraumatic, extra-ocular movements intact, pupils equal and reactive to light bilaterally, mucous membranes moist, no lateral tongue avulsions Cardiovascular: Heart regular rate and rhythm Chest: Able to complete full sentences, no retractions, no tachypnea Abdomen: abdomen soft, non-tender, non-distended, no organomegaly Musculoskeletal: Pulses present and equal in all extremities, no peripheral edema Left hand: Mild ecchymoses over the left second MCP Motor: no focal deficits noted Neurological: CN II-XII grossly intact, no focal motor or sensory deficits noted Skin: Intact with no visualized rashes Psych: Normal affect and mood ED course: 60-year-old female presents emergency department after episode of syncope times upon arrival are within acceptable limits. She spoke to a medical professional to come to the emergency room. She is told that her symptoms may be worrisome for seizure. She is well-appearing at the bedside. Spine x-ray shows degenerative changes in the cervical thoracic and lumbar area. Left hand x-ray shows no acute processes. Computed tomography scan of the head and C-spine shows no acute processes. Laboratory evaluation obtained. CBC, coag panel, metabolic panel is unremarkable. Return evaluation obtained. CBC, coag panel, metabolic is unremarkable. No acidosis. No rhabdo. Coronavirus is negative. Patient reevaluated at the bedside at 12:45 PM found to be stable medical condition. Spinous unclear what causes patient's symptoms. Patient does not have any physical exam findings to suggest seizure, furthermore there was no definitive evidence of postictal state. Patient reevaluated bedside and significant bradycardic with heart rates in the 30s. Given syncope with bradycardia and is concerned that patient is symptomatically bradycardia. Patient will be admitted to observation with consultation cardiology. - Related Data Home Medications Medication Instructions Recorded Confirmed FLUoxetine HCL [PROzac] 20 mg PO BID 12/04/20 06/25/21 Famotidine 40 mg PO Q12H 06/25/21 06/25/21 Melatonin 10 mg PO HS 06/25/21 06/25/21 Rivaroxaban [Xarelto] 20 mg PO AC-SUPPER 06/25/21 06/25/21 Previous Rx's Medication Instructions Recorded Metoprolol Tartrate [Lopressor] 25 mg PO BID #60 tab 09/14/18 Allergies Allergy/AdvReac Type Severity Reaction Status Date / Time codeine Allergy Itching Verified 06/25/21 12:02 hydrocodone Allergy Itching Verified 06/25/21 12:02 latex Allergy Rash/Hives Verified 06/25/21 12:02 Review of Systems ROS Statement: Those systems with pertinent positive or pertinent negative responses have been documented in the HPI. ROS Other: All systems not noted in ROS Statement are negative. Past Medical History Past Medical History: Atrial Fibrillation, Atrial Flutter, Heart Failure, GERD/Reflux, Hypertension Additional Past Medical History / Comment(s): Occasional bilateral ankle/pedal edema, gastritis, allergic rhinitis, Aflutter with RVT and mild CHF History of Any Multi-Drug Resistant Organisms: None Reported Past Surgical History: Cholecystectomy, Tonsillectomy, Tubal Ligation Additional Past Surgical History / Comment(s): EGD, colonoscopy., mass to voicebox removed in April 2021 Past Anesthesia/Blood Transfusion Reactions: No Reported Reaction Additional Past Anesthesia/Blood Transfusion Reaction / Comment(s): Pt states she recieved blood as an infant but does not know reason. Past Psychological History: Anxiety Smoking Status: Former smoker Past Alcohol Use History: Rare Past Drug Use History: None Reported - Past Family History Mother Family Medical History: No Reported History Additional Family Medical History / Comment(s): Mother in her sleep of unknown cause. Father Family Medical History: Hypertension, Myocardial Infarction (ND) Additional Family Medical History / Comment(s): Father had a ND in his 60s. General Exam Limitations: no limitations Course Vital Signs 06/25/21 09:54 Temperature 98.4 F Pulse Rate 61 Respiratory 18 Rate Blood Pressure 137/83 O2 Sat by Pulse 98 Oximetry Medical Decision Making - Lab Data Result diagrams: 06/25/21 10:52 06/25/21 10:52 Lab Results 06/25/21 06/25/21 06/25/21 Range/Units 10:50 10:52 10:52 WBC 6.8 (3.8-10.6) k/uL RBC 4.36 (3.80-5.40) m/uL Hgb 13.3 (11.4-16.0) gm/dL Hct 40.4 (34.0-46.0) % MCV 92.7 (80.0-100.0) fL MCH 30.4 (25.0-35.0) pg MCHC 32.8 (31.0-37.0) g/dL RDW 13.6 (11.5-15.5) % Plt Count 254 (150-450) k/uL MPV 7.2 Neutrophils % 63 % Lymphocytes % 25 % Monocytes % 7 % Eosinophils % 2 % Basophils % 1 % Neutrophils # 4.3 (1.3-7.7) k/uL Lymphocytes # 1.7 (1.0-4.8) k/uL Monocytes # 0.5 (0-1.0) k/uL Eosinophils # 0.1 (0-0.7) k/uL Basophils # 0.1 (0-0.2) k/uL PT 11.3 (9.0-12.0) sec INR 1.1 (<1.2) APTT 31.7 H (22.0-30.0) sec Sodium (137-145) mmol/L Potassium (3.5-5.1) mmol/L Chloride (98-107) mmol/L Carbon Dioxide (22-30) mmol/L Anion Gap mmol/L BUN (7-17) mg/dL Creatinine (0.52-1.04) mg/dL Est GFR (CKD-EPI)AfAm (>60 ml/min/1.73 sqM) Est GFR (CKD-EPI)NonAf (>60 ml/min/1.73 sqM) Glucose (74-99) mg/dL Calcium (8.4-10.2) mg/dL Magnesium (1.6-2.3) mg/dL Total Bilirubin (0.2-1.3) mg/dL AST (14-36) U/L ALT (4-34) U/L Alkaline Phosphatase (38-126) U/L Creatine Kinase (30-135) U/L Troponin I (0.000-0.034) ng/mL Total Protein (6.3-8.2) g/dL Albumin (3.5-5.0) g/dL Coronavirus (PCR) (Not Detectd) Blood Type Blood Type Confirm A Negative Blood Type Recheck Bld Type Recheck Status Antibody Screen Spec Expiration Date 06/25/21 06/25/21 06/25/21 Range/Units 10:52 10:52 10:52 WBC (3.8-10.6) k/uL RBC (3.80-5.40) m/uL Hgb (11.4-16.0) gm/dL Hct (34.0-46.0) % MCV (80.0-100.0) fL MCH (25.0-35.0) pg MCHC (31.0-37.0) g/dL RDW (11.5-15.5) % Plt Count (150-450) k/uL MPV Neutrophils % % Lymphocytes % % Monocytes % % Eosinophils % % Basophils % % Neutrophils # (1.3-7.7) k/uL Lymphocytes # (1.0-4.8) k/uL Monocytes # (0-1.0) k/uL Eosinophils # (0-0.7) k/uL Basophils # (0-0.2) k/uL PT (9.0-12.0) sec INR (<1.2) APTT (22.0-30.0) sec Sodium 140 (137-145) mmol/L Potassium 4.6 (3.5-5.1) mmol/L Chloride 107 (98-107) mmol/L Carbon Dioxide 24 (22-30) mmol/L Anion Gap 9 mmol/L BUN 13 (7-17) mg/dL Creatinine 1.03 (0.52-1.04) mg/dL Est GFR (CKD-EPI)AfAm 69 (>60 ml/min/1.73 sqM) Est GFR (CKD-EPI)NonAf 60 (>60 ml/min/1.73 sqM) Glucose 102 H (74-99) mg/dL Calcium 9.7 (8.4-10.2) mg/dL Magnesium 2.0 (1.6-2.3) mg/dL Total Bilirubin 0.7 (0.2-1.3) mg/dL AST 23 (14-36) U/L ALT 11 (4-34) U/L Alkaline Phosphatase 72 (38-126) U/L Creatine Kinase 54 (30-135) U/L Troponin I <0.012 (0.000-0.034) ng/mL Total Protein 7.3 (6.3-8.2) g/dL Albumin 4.0 (3.5-5.0) g/dL Coronavirus (PCR) Not Detected (Not Detectd) Blood Type Blood Type Confirm Blood Type Recheck Bld Type Recheck Status Antibody Screen Spec Expiration Date 06/25/21 Range/Units 10:55 WBC (3.8-10.6) k/uL RBC (3.80-5.40) m/uL Hgb (11.4-16.0) gm/dL Hct (34.0-46.0) % MCV (80.0-100.0) fL MCH (25.0-35.0) pg MCHC (31.0-37.0) g/dL RDW (11.5-15.5) % Plt Count (150-450) k/uL MPV Neutrophils % % Lymphocytes % % Monocytes % % Eosinophils % % Basophils % % Neutrophils # (1.3-7.7) k/uL Lymphocytes # (1.0-4.8) k/uL Monocytes # (0-1.0) k/uL Eosinophils # (0-0.7) k/uL Basophils # (0-0.2) k/uL PT (9.0-12.0) sec INR (<1.2) APTT (22.0-30.0) sec Sodium (137-145) mmol/L Potassium (3.5-5.1) mmol/L Chloride (98-107) mmol/L Carbon Dioxide (22-30) mmol/L Anion Gap mmol/L BUN (7-17) mg/dL Creatinine (0.52-1.04) mg/dL Est GFR (CKD-EPI)AfAm (>60 ml/min/1.73 sqM) Est GFR (CKD-EPI)NonAf (>60 ml/min/1.73 sqM) Glucose (74-99) mg/dL Calcium (8.4-10.2) mg/dL Magnesium (1.6-2.3) mg/dL Total Bilirubin (0.2-1.3) mg/dL AST (14-36) U/L ALT (4-34) U/L Alkaline Phosphatase (38-126) U/L Creatine Kinase (30-135) U/L Troponin I (0.000-0.034) ng/mL Total Protein (6.3-8.2) g/dL Albumin (3.5-5.0) g/dL Coronavirus (PCR) (Not Detectd) Blood Type A Negative Blood Type Confirm Blood Type Recheck No Previous Record Bld Type Recheck Status CABO Indicated Antibody Screen NEGATIVE Spec Expiration Date 06/28/20212354 Disposition Clinical Impression: Syncope, Bradycardia Disposition: ADMITTED IP TO THIS [facility] Condition: Fair Referrals: Thanh Gonzalez MD [Primary Care Provider] - 1-2 days
[2021-06-25 11:10] LABS: Basophils # (A) 0.1 k/uL (0-0.2); Basophils % (A) 1 %; Eosinophils # (A) 0.1 k/uL (0-0.7); Eosinophils % (A) 2 %; HCT 40.4 % (34.0-46.0); HGB 13.3 gm/dL (11.4-16.0); Lymphocytes # (A) 1.7 k/uL (1.0-4.8); Lymphocytes % (A) 25 %; MCH 30.4 pg (25.0-35.0); MCHC 32.8 g/dL (31.0-37.0); MCV 92.7 fL (80.0-100.0); Mean Platelet Volume 7.2; Monocytes # (A) 0.5 k/uL (0-1.0); Monocytes % (A) 7 %; Neutrophils # (A) 4.3 k/uL (1.3-7.7); Neutrophils % (A) 63 %; Platelet Count 254 k/uL (150-450); RBC 4.36 m/uL (3.80-5.40); RDW 13.6 % (11.5-15.5); WBC 6.8 k/uL (3.8-10.6)
--- NOTE | 2021-06-25 11:15 | CT ---
EXAMINATION TYPE: CT brain beverley reeder DATE OF EXAM: 06/25/2021 COMPARISON: NONE HISTORY: Fall injury with memory loss and neck pain CT DLP: 1483 mGycm. Automated Exposure Control for Dose Reduction was Utilized. TECHNIQUE: CT scan of the head and cervical spine are performed without contrast. FINDINGS: There is no acute intracranial hemorrhage, mass effect, or midline shift identified. The ventricles and sulci are within normal limits in size. Sampson-white matter differentiation is maintai jaime. The calvarium is intact. The globes are intact and the visualized sinuses are clear. Cervical spine is visualized in its entirety from C1 through upper thoracic levels and demonstrates s traightened alignment without evidence of acute fracture or dislocation. Prevertebral soft tissue ap pears within normal limits. The C1-C2 articulation is within normal limits on the coronal images. V ertebral body heights are maintained. Moderate disc space narrowing C4-C5 through C6-C7 levels with m oderate to severe anterior spurring. Posterior spur disc complexes efface the anterior thecal sac at these levels on sagittal and axial images. Axial images show some multilevel mild uncovertebral facet degenerative changes. Thyroid gland appears within normal limits. Lung apices show no pneumothorax. IMPRESSION: 1. There is no acute fracture or dislocation evident in the cervical spine. 2. No acute intracranial hemorrhage or midline shift is seen.
[2021-06-25 11:26] LABS: Calcium 9.7 mg/dL (8.4-10.2); Total Bilirubin 0.7 mg/dL (0.2-1.3); Total Protein 7.3 g/dL (6.3-8.2)
--- NOTE | 2021-06-25 11:29 | XR ---
EXAMINATION TYPE: XR hand complete LT DATE OF EXAM: 06/25/2021 CLINICAL HISTORY: Pain after fall injury. TECHNIQUE: Frontal, lateral and oblique images of the left hand are obtained. COMPARISON: None. FINDINGS: There is no acute fracture/dislocation evident in the left hand. The joint spaces in the l eft hand appear within normal limits. Metallic ring overlies the mid shaft fourth proximal phalanx. M ild to moderate diffuse soft tissue prominence and/or swelling is noted. IMPRESSION: There is no acute fracture or dislocation in the left hand.
[2021-06-25 11:40] LABS: INR 1.1 (<1.2); Partial Thromboplastin Time 31.7 sec (22.0-30.0); Potassium 4.6 mmol/L (3.5-5.1); Prothrombin Time 11.3 sec (9.0-12.0)
--- NOTE | 2021-06-25 11:40 | XR ---
EXAMINATION TYPE: XR spine complete AP and Lat DATE OF EXAM: 06/25/2021 COMPARISON: NONE HISTORY: 60-year-old female mid back pain after fall. TECHNIQUE: 10 views FINDINGS: Cervical spine: Normal odontoid view. Moderate disc/endplate degenerative changes as well as facet an d uncovertebral joint arthropathy mid and lower cervical spine. Degenerative grade 1 anterolisthesis C7-T1. Remaining alignment is maintained. No predental space widening or prevertebral soft tissue swe lling. Thoracic spine:Mild degenerative disc disease throughout the thoracic spine. Vertebral body heights a re preserved and alignment is maintained. 12 rib bearing thoracic vertebral bodies. Slight dextroconv exed curvature along the lower thoracic spine. All pedicles are visualized. Lumbar spine: Cholecystectomy clips. 5 lumbar type vertebral bodies. Severe hypertrophic facet arthro arsenio mid to lower lumbar spine with grade 1, nearly grade 2 anterolisthesis L4-L5. Moderate to sever e degenerative disc disease L5-S1. Vertebral body heights are preserved. IMPRESSION: 1. Cervical spine: Moderate spondylotic change mid to lower cervical spine. Degenerative grade 1 ante rolisthesis C7-T1. 2. Thoracic spine: Mild degenerative disc disease. No vertebral compression collapse or malalignment. Slight dextroconvex curvature/scoliosis lower thoracic spine. 3. Lumbar spine: Severe hypertrophic facet arthropathy mid to lower lumbar spine with grade 1, nearly grade 2 anterolisthesis at L4-L5. Moderate to severe degenerative disc disease L5-S1. No vertebral c ompression collapse.
[2021-06-25] MEDS ORDERED: NALOXONE 0.4 MG/ML 1 ML VIAL IV PRN (12:51)
--- NOTE | 2021-06-25 13:36 | P.HPIM ---
History of Present Illness H&P Date: 06/25/21 This is a 60-year-old female with past medical history noted below significant for paroxysmal atrial flutter that presented to the emergency room after having a syncopal episode yesterday. Patient said that she does not recall exactly what happened but usually her leave the house at 5 in the morning and she was awake for that and next thing She remembered that she was on the floor around 5:30. She does not recall exactly what happened but reports she might have Up to the bathroom and then lost consciousness. Patient was admitted to get up from the floor and was able to continue with her day normally and eventually went to work. 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 Patient was evaluated in the ER and extensive imaging including a CT scan of her brain and x-ray of her hand and ankle were unremarkable for acute findings. Patient was found to be in sinus bradycardia on the monitor with a heart rate in the 40s and occasionally in the 30s. She'll be placed on observation for further evaluation. Review of Systems Review of system: 14 points review of systems were obtained and were negative except to what were mentioned in the HPI. Past Medical History Past Medical History: Atrial Fibrillation, Atrial Flutter, Heart Failure, GERD/Reflux, Hypertension Additional Past Medical History / Comment(s): Occasional bilateral ankle/pedal edema, gastritis, allergic rhinitis, Aflutter with RVT and mild CHF History of Any Multi-Drug Resistant Organisms: None Reported Past Surgical History: Cholecystectomy, Tonsillectomy, Tubal Ligation Additional Past Surgical History / Comment(s): EGD, colonoscopy., mass to voicebox removed in April 2021 Past Anesthesia/Blood Transfusion Reactions: No Reported Reaction Additional Past Anesthesia/Blood Transfusion Reaction / Comment(s): Pt states she recieved blood as an infant but does not know reason. Past Psychological History: Anxiety Smoking Status: Former smoker Past Alcohol Use History: Rare Past Drug Use History: None Reported - Past Family History Mother Family Medical History: No Reported History Additional Family Medical History / Comment(s): Mother in her sleep of unknown cause. Father Family Medical History: Hypertension, Myocardial Infarction ([place]) Additional Family Medical History / Comment(s): Father had a [place] in his 60s. Medications and Allergies Home Medications Medication Instructions Recorded Confirmed Type Metoprolol Tartrate [Lopressor] 25 mg PO BID #60 tab 09/14/18 06/25/21 Rx FLUoxetine HCL [PROzac] 20 mg PO BID 12/04/20 06/25/21 History Famotidine 40 mg PO Q12H 06/25/21 06/25/21 History Melatonin 10 mg PO HS 06/25/21 06/25/21 History Rivaroxaban [Xarelto] 20 mg PO AC-SUPPER 06/25/21 06/25/21 History Allergies Allergy/AdvReac Type Severity Reaction Status Date / Time codeine Allergy Itching Verified 06/25/21 12:02 hydrocodone Allergy Itching Verified 06/25/21 12:02 latex Allergy Rash/Hives Verified 06/25/21 12:02 Physical Exam Vitals: Vital Signs Temp Pulse Pulse Resp BP Pulse Ox 06/25/21 12:58 45 L 06/25/21 12:44 36 L 36 L 18 118/71 97 06/25/21 09:54 98.4 F 61 18 137/83 98 Intake and Output 06/24/21 06/25/21 06/25/21 22:59 06:59 14:59 Other: Weight 110.677 kg General: The patient is awake and alert, in no distress Eye: there is normal conjunctiva bilaterally. Neck: The neck is supple, there is no JVD. Cardiovascular: Normal S1-S2, no S3-S4, no murmurs. Respiratory: Lungs clear to auscultation bilaterally Gastrointestinal: Abdomen is soft, nontender Musculoskeletal: There is no pedal edema. Neurological:. Speech is normal. Skin: Skin is warm and dry Results CBC & Chem 7: 06/25/21 10:52 06/25/21 10:52 Labs: Abnormal Lab Results - Last 24 Hours (Table) 06/25/21 06/25/21 Range/Units 10:52 10:52 APTT 31.7 H (22.0-30.0) sec Glucose 102 H (74-99) mg/dL Assessment and Plan Assessment: 1. Syncopal episode, exact etiology unclear. May be attributed to sinus bradycardia. Would continue monitor tech. Discontinue home dose of metoprolol and check thyroid function test. Cardiology consulted for further evaluation. I would order orthostatic blood pressure as well. Continue gentle IV fluid hydration. 2. History of paroxysmal atrial flutter on anticoagulation with Rivaroxaban 3. Underlying depression
[2021-06-25] MEDS: FAMOTIDINE 20 MG TAB PO SCH ×2 (16:10→23:39)
[2021-06-25] MEDS: SODIUM CHLORIDE 0.9% 1,000 ML IV SCH (16:10)
[2021-06-25] MEDS ORDERED: RIVAROXABAN 20 MG TAB PO SCH (17:30)
[2021-06-25] MEDS ORDERED: ACETAMINOPHEN TAB 325 MG TAB PO PRN (19:00)
[2021-06-25] MEDS ORDERED: MELATONIN 5 MG TABLET PO SCH (21:00)
[2021-06-25] MEDS: FLUoxetine HCL 20 MG CAP PO SCH (21:29)
[2021-06-25 23:42] VITALS: RESP 18
--- NOTE | 2021-06-26 09:05 | P.CRDCN ---
History of Present Illness History of present illness: HISTORY OF PRESENTING ILLNESS Patient is a pleasant 60-year-old female with history of hypertension, atrial flutter, depression, anxiety who presents secondary to finding herself on the floor with apparent syncopal episode. Patient cannot recall the episode and states her had artery left for work and patient does not recall getting up to go the bathroom however found herself on the bedroom floor. Patient admits she was feeling somewhat foggy at the time however slowly came back to normal and one about her day. She is not been having issues, no chest pain, pressure, shortness breath. She does admit to occasional episodes of feeling somewhat lightheaded and fatigued which will last for a few minutes. She has been told in the past that her heart rate has been lower. She was found to have sinus bradycardia with a heart rate of 37 bpm with a bundle branch block on init ial EKG. She has been taking the metoprolol 25 mg twice a day for some time for her atrial flutter. She admits for her atrial flutter this normally occurs approximately once every 4 months. She was actually scheduled to perform November monitor yesterday at the office however missed her appointment. She currently has been feeling fine walking about without any inhibition or lightheadedness. On telemetry patient has been in normal sinus rhythm with occasional sinus bradycardia down to 35 however no significant pauses greater than 2 seconds, no significant AV block. REVIEW OF SYSTEMS At the time of my exam: CONSTITUTIONAL: Denies fever or chills. CARDIOVASCULAR: Denies chest pain, shortness of breath, orthopnea, PND or palpitations. RESPIRATORY: Denies cough. GASTROINTESTINAL: Denies abdominal pain, diarrhea, constipation, nausea or vomiting. MUSCULOSKELETAL: Denies myalgias. NEUROLOGIC: Denies numbness, tingling or weakness. ENDOCRINE: Denies fatigue, weight change, polydipsia or polyurina. GENITOURINARY: Denies burning, hematuria or urgency with micturation. HEMATOLOGIC: Denies history of anemia or bleeding. PHYSICAL EXAMINATION Vital signs reviewed. CONSTITUTIONAL: No apparent distress. HEENT: Head is normocephalic. Pupils are equal, round. Sclerae anicteric. Mucous membranes of the mouth are moist. No JVD. No carotid bruit. CHEST EXAMINATION: Lungs are clear to auscultation. No chest wall tenderness is noted on palpation or with deep breathing. HEART EXAMINATION: Regular rate and rhythm. S1, S2 heard. No murmurs, gallops or rub. ABDOMEN: Soft, nontender. Positive bowel sounds. EXTREMITIES: 2+ peripheral pulses, no lower extremity edema and no calf tenderness. NEUROLOGIC EXAMINATION: Patient is awake, alert and oriented x3. ASSESSMENT 1. Apparent syncopal episode, patient being found on floor 2. History of typical atrial flutter, patient denies any atrial fibrillation 3. Hypertension 4. Anxiety 5. Right bundle branch block 6. Intermittent episodes of lightheadedness and fatigue, possibly related to bradycardia 7. Sinus bradycardia in the 30s likely in part related to beta anthony. PLAN Unclear patient's presentation with apparent syncopal episode. This very well may have been a vasovagal episode with possibility of patient coming back from the bathroom however was found to have significant sinus bradycardia with heart rates in the 30s. Recommend discontinuation of beta anthony and ideally since only atrial flutter has been noted would recommend atrial flutter ablation as this can be curative and therefore would avoid the need of beta anthony. Recommend 30 day event monitor going home to rule out more significant pauses or bradycardia however at this point no indication for permanent pacemaker. Check 2-D echo and if unrevealing patient may be discharged home from a cardiology standpoint. Past Medical History Past Medical History: Atrial Fibrillation, Atrial Flutter, Heart Failure, GERD/Reflux, Hypertension Additional Past Medical History / Comment(s): Occasional bilateral ankle/pedal edema, gastritis, allergic rhinitis, Aflutter with RVT and mild CHF History of Any Multi-Drug Resistant Organisms: None Reported Past Surgical History: Cholecystectomy, Tonsillectomy, Tubal Ligation Additional Past Surgical History / Comment(s): EGD, colonoscopy., mass to voicebox removed in April 2021 Past Anesthesia/Blood Transfusion Reactions: No Reported Reaction Additional Past Anesthesia/Blood Transfusion Reaction / Comment(s): Pt states she recieved blood as an infant but does not know reason. Past Psychological History: Anxiety Smoking Status: Former smoker Past Alcohol Use History: Rare Past Drug Use History: None Reported - Past Family History Mother Family Medical History: No Reported History Additional Family Medical History / Comment(s): Mother in her sleep of unknown cause. Father Family Medical History: Hypertension, Myocardial Infarction ([place]) Additional Family Medical History / Comment(s): Father had a [place] in his 60s. Medications and Allergies Home Medications Medication Instructions Recorded Confirmed Type Metoprolol Tartrate [Lopressor] 25 mg PO BID #60 tab 09/14/18 06/25/21 Rx FLUoxetine HCL [PROzac] 20 mg PO BID 12/04/20 06/25/21 History Famotidine 40 mg PO Q12H 06/25/21 06/25/21 History Melatonin 10 mg PO HS 06/25/21 06/25/21 History Rivaroxaban [Xarelto] 20 mg PO AC-SUPPER 06/25/21 06/25/21 History Allergies Allergy/AdvReac Type Severity Reaction Status Date / Time codeine Allergy Itching Verified 06/25/21 12:02 hydrocodone Allergy Itching Verified 06/25/21 12:02 latex Allergy Rash/Hives Verified 06/25/21 12:02 Physical Exam Vitals: Vital Signs Temp Pulse Pulse Pulse Resp BP BP 06/26/21 07:00 97.9 F 66 18 132/81 06/26/21 02:00 97.6 F 57 L 18 127/78 06/25/21 23:41 97.7 F 43 L 18 144/72 06/25/21 23:30 18 06/25/21 19:33 98.3 F 53 L 16 137/87 06/25/21 16:45 61 16 06/25/21 16:44 56 L 16 06/25/21 16:43 53 L 16 06/25/21 16:01 51 L 18 127/67 06/25/21 15:17 42 L 18 127/62 06/25/21 12:58 45 L 06/25/21 12:44 36 L 36 L 18 118/71 06/25/21 09:54 98.4 F 61 18 137/83 BP BP BP Pulse Ox 06/26/21 07:00 98 06/26/21 02:00 99 06/25/21 23:41 98 06/25/21 23:30 06/25/21 19:33 96 06/25/21 16:45 126/83 98 06/25/21 16:44 141/80 96 06/25/21 16:43 131/66 98 06/25/21 16:01 98 06/25/21 15:17 96 06/25/21 12:58 06/25/21 12:44 97 06/25/21 09:54 98 Intake and Output 06/25/21 06/26/21 06/26/21 22:59 06:59 14:59 Other: # Voids 2 # Bowel Movements 0 Results 06/25/21 10:52 06/25/21 10:52 Cardiac Enzymes 06/25/21 06/25/21 Range/Units 10:52 10:52 AST 23 (14-36) U/L Troponin I <0.012 (0.000-0.034) ng/mL Coagulation 06/25/21 Range/Units 10:52 PT 11.3 (9.0-12.0) sec APTT 31.7 H (22.0-30.0) sec CBC 06/25/21 Range/Units 10:52 WBC 6.8 (3.8-10.6) k/uL RBC 4.36 (3.80-5.40) m/uL Hgb 13.3 (11.4-16.0) gm/dL Hct 40.4 (34.0-46.0) % Plt Count 254 (150-450) k/uL Comprehensive Metabolic Panel 06/25/21 Range/Units 10:52 Sodium 140 (137-145) mmol/L Potassium 4.6 (3.5-5.1) mmol/L Chloride 107 (98-107) mmol/L Carbon Dioxide 24 (22-30) mmol/L BUN 13 (7-17) mg/dL Creatinine 1.03 (0.52-1.04) mg/dL Glucose 102 H (74-99) mg/dL Calcium 9.7 (8.4-10.2) mg/dL AST 23 (14-36) U/L ALT 11 (4-34) U/L Alkaline Phosphatase 72 (38-126) U/L Total Protein 7.3 (6.3-8.2) g/dL Albumin 4.0 (3.5-5.0) g/dL Current Medications Generic Name Dose Route Start Last Admin Trade Name Freq PRN Reason Stop Dose Admin Acetaminophen 650 mg 06/25/21 19:00 06/25/21 19:32 Acetaminophen Tab 325 Mg Tab PO 650 mg Q4HR PRN Administration Fever and/ or Pain Famotidine 40 mg 06/25/21 13:45 06/25/21 23:39 Famotidine 20 Mg Tab PO Not Given Q12HR SELVIN Fluoxetine HCl 20 mg 06/25/21 21:00 06/25/21 21:29 Fluoxetine Hcl 20 Mg Cap PO 20 mg BID SELVIN Administration Sodium Chloride 1,000 mls @ 20 mls/hr 06/25/21 13:00 06/25/21 16:10 Saline 0.9% IV 20 mls/hr .Q24H SELVIN Administration Melatonin 10 mg 06/25/21 21:00 06/25/21 21:29 Melatonin 5 Mg Tablet PO 10 mg HS SELVIN Administration Naloxone HCl 0.2 mg 06/25/21 12:51 Naloxone 0.4 Mg/Ml 1 Ml Vial IV Q2M PRN Opioid Reversal Rivaroxaban 20 mg 06/25/21 17:30 06/25/21 18:49 Rivaroxaban 20 Mg Tab PO 20 mg AC-SUPPER SELVIN Administration Protocol Intake and Output 06/25/21 06/26/21 06/26/21 22:59 06:59 14:59 Other: # Voids 2 # Bowel Movements 0 06/25/21 10:52 06/25/21 10:52
[2021-06-26] MEDS: SODIUM CHLORIDE 0.9% 1,000 ML IV SCH (09:50)
[2021-06-26] MEDS: FAMOTIDINE 20 MG TAB PO SCH (09:50)
[2021-06-26] MEDS: FLUoxetine HCL 20 MG CAP PO SCH (10:48)
--- NOTE | 2021-06-26 11:39 | ECHOF ---
Referral Reason:lv function, syncope MEASUREMENTS -------- HEIGHT: 175.3 cm WEIGHT: 110.7 kg BP: 132/81 RVIDd: 2.7 cm (< 3.3) IVSd: 1.1 cm (0.6 - 1.1) LVIDd: 4.8 cm (3.9 - 5.3) LVPWd: 1.0 cm (0.6 - 1.1) IVSs: 1.7 cm LVIDs: 2.9 cm LVPWs: 1.5 cm LA Diam: 3.0 cm (2.7 - 3.8) LAESV Index (A-L): 25.97 ml/m Ao Diam: 3.1 cm (2.0 - 3.7) AV Cusp: 2.2 cm (1.5 - 2.6) MV EXCURSION: 13.666 mm (> 18.000) MV EF SLOPE: 82 mm/s (70 - 150) EPSS: 0.2 cm MV E Earnest: 0.83 m/s MV DecT: 328 ms MV A Earnest: 0.91 m/s MV E/A Ratio: 0.91 FINDINGS -------- Resting bradycardia (HR<60bpm). This was a technically good study. The left ventricular size is normal. There is borderline concentric left ventricular hypertrophy. Overall left ventricular systolic function is normal with, an EF between 60 - 65 %. The right ventricle is normal in size. Normal LA size by volume 22+/-6 ml/m2. The right atrium is normal in size. Interatrial and interventricular septum intact. The aortic valve is trileaflet, and appears structurally normal. No aortic stenosis or regurgitation. There is trace mitral regurgitation. The tricuspid valve appears structurally normal. Unable to estimate RVSP due to inadequate TR jet s pectral doppler profile. Trace/mild (physiologic) pulmonic regurgitation. The aortic root size is normal. Normal inferior vena cava with normal inspiratory collapse consistent with estimated right atrial pre ssure of 5 mmHg. There is no pericardial effusion. CONCLUSIONS -------- 1. The left ventricular size is normal. 2. There is borderline concentric left ventricular hypertrophy. 3. Overall left ventricular systolic function is normal with, an EF between 60 - 65 %. 4. The aortic valve is trileaflet, and appears structurally normal. No aortic stenosis or regurgitati on. 5. There is trace mitral regurgitation. 6. Trace/mild (physiologic) pulmonic regurgitation. 7. There is no pericardial effusion. CLUB DIRECTOR: Chaya Cho RDCS
[2021-06-26 15:12] VITALS: BP 120/75; PULSE 60; TEMP 97.8
--- NOTE | 2021-06-26 15:14 | P.DS ---
Providers Date of admission: 06/25/21 12:51 Expected date of discharge: 06/26/21 Attending physician: Salinas Lovelace Consults: 06/25/21 12:51 Consult Physician Routine Consulting Provider: Domenico Hernandez Consult Reason/Comments: bradycardia, syncope Do you want consulting provider notified?: Yes Primary care physician: [facility] Course: This is a 60-year-old female with past medical history of paroxysmal atrial flutter that presented to the emergency room with a syncopal episode. Patient was evaluated in the ER and was found to be in sinus bradycardia. She was placed on observation was seen and evaluated by cardiology. Home dose of metoprolol was discontinued. Echocardiogram showed preserved ejection fraction with no significant valvular abnormalities. Patient had a computed tomography scan of the brain in the ER with no acute findings. Event monitor was placed prior to discharge and patient was cleared by cardiology for discharge home. She will follow-up in the office as directed. For further details about this hospitalization please refer to the electronic chart. Physical exam: General: The patient is awake and alert, in no distress Eye: there is normal conjunctiva bilaterally. Neck: The neck is supple, there is no JVD. Cardiovascular: Normal S1-S2, no S3-S4, no murmurs. Respiratory: Lungs clear to auscultation bilaterally Gastrointestinal: Abdomen is soft, nontender Musculoskeletal: There is no pedal edema. Neurological:. Speech is normal. Skin: Skin is warm and dry Patient Condition at Discharge: Fair Plan - Discharge Summary New Discharge Prescriptions: Continue FLUoxetine HCL [PROzac] 20 mg PO BID Rivaroxaban [Xarelto] 20 mg PO AC-SUPPER Famotidine 40 mg PO Q12H Melatonin 10 mg PO HS Discontinued Metoprolol Tartrate [Lopressor] 25 mg PO BID #60 tab Discharge Medication List FLUoxetine HCL [PROzac] 20 mg PO BID 12/04/20 [History] Famotidine 40 mg PO Q12H 06/25/21 [History] Melatonin 10 mg PO HS 06/25/21 [History] Rivaroxaban [Xarelto] 20 mg PO AC-SUPPER 06/25/21 [History] Follow up Appointment(s)/Referral(s): Elliot Acuna MD [STAFF PHYSICIAN] - 1 Week Thanh Gonzalez MD [Primary Care Provider] - 1-2 days Discharge Disposition: HOME SELF-CARE
== END 2021-06-26 15:55 | disposition home or self-care (01) ==
LOC: EC 09:45 → 6NMEDSUR 12:51
PROVIDERS: ADMIT Internal Medicine; ATTEND Internal Medicine
DX: R55 Syncope and collapse (principal); R00.1 Bradycardia, unspecified; I48.0 Paroxysmal atrial fibrillation; Z20.822 Contact with and (suspected) exposure to COVID-19; I11.0 Hypertensive heart disease with heart failure; I50.9 Heart failure, unspecified; I48.3 Typical atrial flutter; I45.10 Unspecified right bundle-branch block; F32.A Depression, unspecified; F41.9 Anxiety disorder, unspecified; R41.3 Other amnesia; M79.642 Pain in left hand; R61 Generalized hyperhidrosis; R53.83 Other fatigue; K21.9 Gastro-esophageal reflux disease without esophagitis; J30.9 Allergic rhinitis, unspecified; Z79.899 Other long term (current) drug therapy; Z79.01 Long term (current) use of anticoagulants; Z91.040 Latex allergy status; Z88.5 Allergy status to narcotic agent; Z90.49 Acquired absence of other specified parts of digestive tract; Z98.51 Tubal ligation status; Z87.891 Personal history of nicotine dependence; Z82.49 Family history of ischemic heart disease and other diseases of the circulatory system
CPT/HCPCS: 99285; 36415; 93005; 93306; 93270; 86900; 86901; 80053; 84443; 82550; 83735; 84484; 85025; 85610; 85730; 86850; 87635; 72082; 73130; 72125; 70450; G0378 ×2

== ENCOUNTER 2022-06-15 07:36 | Emergency (ER) | payer BC ==
[2022-06-15 07:46] VITALS: RESP 16; TEMP 97.7
[2022-06-15] MEDS ORDERED: ORPHENADRINE 30 MG/ML 2 ML VIAL IM STA (07:57)
--- NOTE | 2022-06-15 08:01 | ED ---
Back Pain HPI - General Chief Complaint: Back Pain/Injury Stated Complaint: Back Pain Time Seen by Provider: 06/15/22 07:51 Source: patient, RN notes reviewed, old records reviewed Limitations: no limitations - History of Present Illness Initial Comments: 61-year-old female presents ambulatory with complaints of left upper back/flank pain on and off for over a year. Denies any injury. She states that she has seen her primary care doctor who told her he thought it was muscle pain. She also seen a chiropractor who stated that he felt it was not muscle related but may be a kidney stone. Patient denies dysuria or hematuria. No nausea vomiting diarrhea or fevers. She states she did take 800 mg of Tylenol that her son gave her with no relief. States pain is better when you push on the area. MD Complaint: back pain -: year(s) (1) Similar Symptoms Previously: Yes Severity scale (1-10): 8 Quality: sharp Consistency: intermittent Improves With: walking, other (Palpation) Associated Symptoms: denies other symptoms Treatments Prior to Arrival: other (tylenol "800") - Related Data Home Medications Medication Instructions Recorded Confirmed FLUoxetine HCL [PROzac] 20 mg PO BID 12/04/20 06/25/21 Famotidine 40 mg PO Q12H 06/25/21 06/25/21 Melatonin [Melatonin ER] 10 mg PO HS 06/25/21 06/25/21 Rivaroxaban [Xarelto] 20 mg PO AC-SUPPER 06/25/21 06/25/21 Allergies Allergy/AdvReac Type Severity Reaction Status Date / Time codeine Allergy Itching Verified 06/15/22 07:44 hydrocodone Allergy Itching Verified 06/15/22 07:44 latex Allergy Rash/Hives Verified 06/15/22 07:44 Review of Systems ROS Statement: Those systems with pertinent positive or pertinent negative responses have been documented in the HPI. ROS Other: All systems not noted in ROS Statement are negative. Past Medical History Past Medical History: Atrial Fibrillation, Atrial Flutter, Heart Failure, GERD/Reflux, Hypertension Additional Past Medical History / Comment(s): Occasional bilateral ankle/pedal edema, gastritis, allergic rhinitis, Aflutter with RVT and mild CHF History of Any Multi-Drug Resistant Organisms: None Reported Past Surgical History: Cholecystectomy, Tonsillectomy, Tubal Ligation Additional Past Surgical History / Comment(s): EGD, colonoscopy., mass to voicebox removed in April 2021 Past Anesthesia/Blood Transfusion Reactions: No Reported Reaction Additional Past Anesthesia/Blood Transfusion Reaction / Comment(s): Pt states she recieved blood as an but does not know reason. Past Psychological History: Anxiety Smoking Status: Former smoker Past Alcohol Use History: Rare Past Drug Use History: None Reported - Past Family History Mother Family Medical History: No Reported History Additional Family Medical History / Comment(s): Mother in her sleep of unknown cause. Father Family Medical History: Hypertension, Myocardial Infarction ([place]) Additional Family Medical History / Comment(s): Father had a [place] in his 60s. General Exam Limitations: no limitations General appearance: alert, in no apparent distress Head exam: Present: atraumatic Eye exam: Absent: scleral icterus, conjunctival injection, periorbital swelling Neck exam: Absent: meningismus Respiratory exam: Absent: respiratory distress, accessory muscle use Cardiovascular Exam: Present: regular rate Back exam: Present: normal inspection, CVA tenderness (L). Absent: CVA tende rness (R), muscle spasm, paraspinal tenderness, vertebral tenderness, rash noted Neurological exam: Present: alert, oriented X3, normal gait Psychiatric exam: Present: normal affect, normal mood Skin exam: Present: warm, dry, intact, normal color. Absent: cyanosis, diaphoretic, petechiae, pallor Course Vital Signs 06/15/22 07:44 Temperature 97.7 F Pulse Rate 68 Respiratory 16 Rate Blood Pressure 157/92 O2 Sat by Pulse 99 Oximetry Medical Decision Making - Medical Decision Making X-ray reviewed by me shows no evidence of abnormal calcifications. No pneumoperitoneum. Radiologist's impression no definite nephrolithiasis with overall nonobstructive bowel gas pattern. Cholecystectomy clips demonstrated. Lung bases clear. UA shows small amount of blood no evidence of infection. Ultrasound shows no evidence of hydronephrosis or renal calculi. Patient was given Norflex and Toradol with pain relief. She'll be directed to follow up with her primary care doctor is this may have been a kidney stone that she passed. Strict return parameters were discussed and she is agreeable to this plan of care case discussed with Dr. Drummond - Lab Data Lab Results 06/15/22 Range/Units 08:18 Urine Color Yellow Urine Appearance Cloudy H (Clear) Urine pH 5.5 (5.0-8.0) Ur Specific [place] 1.027 (1.001-1.035) Urine Protein Trace H (Negative) Urine Glucose (UA) Negative (Negative) Urine Ketones Negative (Negative) Urine Blood Small H (Negative) Urine Nitrite Negative (Negative) Urine Bilirubin Negative (Negative) Urine Urobilinogen <2.0 (<2.0) mg/dL Ur Leukocyte Esterase Negative (Negative) Urine RBC 6 H (0-5) /hpf Urine WBC 2 (0-5) /hpf Ur Squamous Epith Cells 11 H (0-4) /hpf Amorphous Sediment Occasional H (None) /hpf Hyaline Casts 1 (0-2) /lpf Urine Mucus Rare H (None) /hpf Disposition Clinical Impression: Left flank pain Disposition: HOME SELF-CARE Condition: Good Instructions (If sedation given, give patient instructions): Flank Pain (ED) Additional Instructions: Increase your fluid intake. Follow-up with your primary care doctor this week. Return to the emergency room with any new or concerning symptoms including increased pain, fevers or persistent nausea vomiting. Is patient prescribed a controlled substance at d/c from ED?: No Referrals: Thanh Gonzalez MD [Primary Care Provider] - 1-2 days Time of Disposition: 10:13
--- NOTE | 2022-06-15 08:35 | XR ---
EXAMINATION TYPE: XR KUB DATE OF EXAM: 06/15/2022 8:24 AM CLINICAL HISTORY: Left flank pain. TECHNIQUE: Two Upright KUB images of the abdomen are obtained. COMPARISON: Prior abdominal x-ray 2012 FINDINGS: Gas seen in nondistended stomach. Scattered gas is seen in non-distended small bowel loops. Gas and fecal material is seen in non-distended colon. Cholecystectomy clips are redemonstrated. Sli ght dextroconvex scoliotic curvature centered in lower thoracic spine. No free air. Lung bases are cl ear. IMPRESSION: No definite nephrolithiasis. Overall nonobstructive bowel gas pattern.
[2022-06-15 08:37] LABS: Amorphous Sediment,Urine Occasional /hpf; Appearance,Urine Cloudy (Clear); Bilirubin,Urine Negative (Negative); Blood,Urine Small (Negative); Color,Urine Yellow; Glucose,Urine (UA) Negative (Negative); Hyaline Casts,Urine 1 /lpf (0-2); Ketones,Urine Negative (Negative); Leukocyte Esterase,Urine Negative (Negative); Mucus,Urine Rare /hpf; Nitrite,Urine Negative (Negative); PH, Urine 5.5 (5.0-8.0); Protein,Urine Trace (Negative); RBC,Urine 6 /hpf (0-5); Specific Gravity,Urine 1.027 (1.001-1.035); Squamous Epithelial Cell,Urine 11 /hpf (0-4); Urobilinogen,Urine <2.0 mg/dL (<2.0); WBC,Urine 2 /hpf (0-5)
[2022-06-15] MEDS ORDERED: KETOROLAC 15 MG/ML 1 ML VIAL IM STA (08:49)
--- NOTE | 2022-06-15 09:50 | US ---
EXAMINATION TYPE: US renals and bladder DATE OF EXAM: 06/15/2022 COMPARISON: NONE CLINICAL HISTORY: uti, back pain, hx of kidney stones. pain EXAM MEASUREMENTS: Right Kidney: 10.1 x 4.2 x 4.7 cm Left Kidney: 10.1 x 5.3 x 5.0 cm Right Kidney: No hydronephrosis or masses seen . No shadowing calculi. Left Kidney: No hydronephrosis or masses seen . No shadowing calculi. Bladder: Anechoic and under distended which limits evaluation. Bilateral Jets seen: Yes IMPRESSION: No hydronephrosis or definitive shadowing renal calculi.
[2022-06-15 10:45] VITALS: BP 143/66; PULSE 50
== END 2022-06-15 10:45 | disposition home or self-care (01) ==
LOC: EC 07:36
DX: R10.12 Left upper quadrant pain (principal); I48.91 Unspecified atrial fibrillation; K21.9 Gastro-esophageal reflux disease without esophagitis; I11.0 Hypertensive heart disease with heart failure; I50.9 Heart failure, unspecified; F41.9 Anxiety disorder, unspecified; Z87.891 Personal history of nicotine dependence; Z88.5 Allergy status to narcotic agent; Z91.040 Latex allergy status; Z79.899 Other long term (current) drug therapy
CPT/HCPCS: 81001; 74018; 76770; 99284; 96372 ×2; J2360; J1885

== ENCOUNTER → 2023-06-15 | Outpatient (CLI) | payer BC ==
[2023-06-16 02:39] LABS: Blood Urea Nitrogen 15.4 mg/dL (9.0-27.0); Carbon Dioxide 26.6 mmol/L (21.6-31.8); Chloride 103 mmol/L (96-109); Potassium 4.4 mmol/L (3.5-5.5); Sodium 142 mmol/L (135-145)
[2023-06-16 04:25] LABS: HCT 42.6 % (37.2-46.3); HGB 13.3 d/dL (12.0-15.0); MCH 30.2 pg (27.0-32.0); MCHC 31.2 d/dL (32.0-37.0); MCV 96.8 FL (80.0-97.0); Mean Platelet Volume 9.8 FL (9.5-12.2); NRBC Per 100 WBC 0 X 10*3/uL (0.00-0.01); Platelet Count 351 X 10*3/uL (140-440); RDW 13.2 % (11.5-14.5); WBC 8.43 X 10*3/uL (4.50-10.00)
== END | disposition home or self-care (01) ==
LOC: LABPAT 16:24
PROVIDERS: ATTEND Internal Medicine Interventional Cardiology
DX: Z01.812 Encounter for preprocedural laboratory examination (principal); R07.9 Chest pain, unspecified; R94.39 Abnormal result of other cardiovascular function study
CPT/HCPCS: 80051; 82565; 84520; 85027

== ENCOUNTER → 2023-06-18 | Day surgery (SDC) | payer BC ==
[2023-06-15 15:13] VITALS: BMI 36.3
[~2023-06-18] MED LIST: ALPRAZolam 0.25 MG TAB PO PRN; ALPRAZolam 0.5 MG TAB PO PRN; ASPIRIN 325 MG TAB PO ONE; FAMOTIDINE 20 MG TAB PO SCH; HEPARIN SODIUM 1,000 UN/ML (10ML VL) IVP ONE; IOPAMIDOL-370 200ML BTL INJ ONE; LIDOCAINE 1% INJ 10MG/ML (20 ML MDV) ONE; LIDOCAINE 1% INJ 10MG/ML (20 ML MDV) SQ ONE; NITROGLYCERIN SL TABS 0.4 MG TAB SUBLINGUAL PRN; RX INFO: IV CONTRAST WAS GIVEN 1 EACH MISC MISCELLANE PRN; SODIUM CHLORIDE 0.9% 1,000 ML IV ONE; SODIUM CHLORIDE 0.9% 1,000 ML IV SCH; SODIUM CHLORIDE 0.9% 1,000 ML in EMPTY BAG 1 BAG IV SCH; VERAPAMIL 2.5 MG/ML 2 ML AMP ONE; VERAPAMIL SYRINGE (5 MG/10 ML) INTRAARTER ONE; fentaNYL (PF) 50 MCG/ML 2 ML AMP IVP ONE; fentaNYL (PF) 50 MCG/ML 2 ML AMP ONE
[2023-06-18 08:23] VITALS: RESP 16; TEMP 97.7
--- NOTE | 2023-06-18 09:42 | P.CARDCATH ---
Date of Procedure: 06/18/23 Description of Procedure: Cardiac Catheterization: The patient is a 62-year-old female with a known history of paroxysmal atrial flutter who presents with symptoms of dyspnea and chest discomfort and abnormal MPI. Recommendations were made regarding cardiac catheterization, the risks and the complications were discussed with the patient who is in full understanding and agreement. 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 Using Xylocaine Anesthesia and modified Seldinger technique, a 6-Niuean sheath was introduced in the right radial artery . Subsequently, selective coronary angiography was performed using a 5-Niuean 3.5 bend Rosetta catheter. Multiple views of the coronary artery including hemiaxial views were obtained. The 6-Niuean pigtail catheter was used to cross the aortic valve and LVEDP was calculated. Following that, catheter and sheath were removed. Hemostasis was obtained with deployment of vascular band . There was no immediate complication. Patient was returned to room in stable condition. Of note, the patient received a total of 5000 units of intravenous heparin as well as intra-arterial verapamil. Findings: Left main: This is a large-size vessel, bifurcating into LAD and circumflex, left main has no obstructive disease LAD: This is a moderately sized vessel that tapers down in the distal third giving rise to a moderately sized diagonal branch and mid segment, the LAD and its branches have no obstructive disease Left circumflex: This is a large nondominant vessel giving rise to a large proximal obtuse marginal branch, the left circumflex and its branches have no obstructive disease RCA: This is a large dominant vessel bifurcating into PDA and PLV. The PDA reaches to the inferoapical wall. The right coronary artery and branches have no obstructive disease Left Ventriculogram: Not performed Hemodynamics: There was no gradient across the aortic valve , LVEDP was 20-24 mmHg Conclusion: 1. Normal coronary arteries 2. Right dominance Recommendations: The patient will continue medical therapy, depending on her progress further recommendations will be made. At this time I see no evidence of obstructive CAD to explain her chest discomfort. The findings and the recommendations were discussed with the patient and the family and they were in full understanding and agreement. Duration of sedation is 15 minutes.
[2023-06-18 13:17] VITALS: BP 118/65; PULSE 59
== END | disposition home or self-care (01) ==
LOC: CATHCVL 07:31
PROVIDERS: ATTEND Internal Medicine Interventional Cardiology
DX: I48.0 Paroxysmal atrial fibrillation (principal); I48.3 Typical atrial flutter; Z79.01 Long term (current) use of anticoagulants; Z88.5 Allergy status to narcotic agent; Z88.6 Allergy status to analgesic agent; Z88.8 Allergy status to other drugs, medicaments and biological substances; Z87.891 Personal history of nicotine dependence; Z79.899 Other long term (current) drug therapy
CPT/HCPCS: 93458; C1769 ×2; C1894; J2001; J3010; J1644; Q9967

== ENCOUNTER → 2024-01-11 | Outpatient (CLI) | payer BC ==
[2024-01-12 01:50] LABS: HCT 40.8 % (37.2-46.3); HGB 13.3 g/dL (12.0-15.0); MCHC 32.6 g/dL (32.0-37.0); MCV 95.1 FL (80.0-97.0); Mean Platelet Volume 10.3 FL (9.5-12.2); NRBC Per 100 WBC 0 X 10*3/uL (0.00-0.01); Platelet Count 284 X 10*3/uL (140-440); RBC 4.29 X 10*6/uL (4.10-5.20); RDW 13.8 % (11.5-14.5); WBC 6.64 X 10*3/uL (4.50-10.00)
[2024-01-12 02:44] LABS: BUN/Creat Ratio 11.08 Ratio (12.00-20.00); Blood Urea Nitrogen 13.3 mg/dL (9.0-27.0); Carbon Dioxide 25.8 mmol/L (21.6-31.8); Chloride 106 mmol/L (96-109); Glucose 92 mg/dL (70-110); Potassium 4.1 mmol/L (3.5-5.5); Sodium 144 mmol/L (135-145)
[2024-01-12 02:45] LABS: ALT 17 U/L (8-44); AST 20 U/L (13-35); Albumin 4.4 g/dL (3.8-4.9); Albumin/Globulin Ratio 1.76 Ratio (1.60-3.17); Alkaline Phosphatase 95 U/L (41-126); Calcium 9.6 mg/dL (8.7-10.3); Globulin 2.5 g/dL (1.6-3.3); Total Bilirubin 0.3 mg/dL (0.3-1.2); Total Protein 6.9 g/dL (6.2-8.2)
== END | disposition home or self-care (01) ==
LOC: LABWHC1 15:00
PROVIDERS: ATTEND Internal Medicine Interventional Cardiology
DX: I48.3 Typical atrial flutter (principal)
CPT/HCPCS: 36415; 80053; 84443; 85027

== ENCOUNTER 2024-01-19 05:55 | Day surgery (SDC) | payer BC ==
[~2024-01-19 05:55] MED LIST changes: -ALPRAZolam 0.25 MG TAB PO PRN; -ALPRAZolam 0.5 MG TAB PO PRN; -ASPIRIN 325 MG TAB PO ONE; -FAMOTIDINE 20 MG TAB PO SCH; -HEPARIN SODIUM 1,000 UN/ML (10ML VL) IVP ONE; -IOPAMIDOL-370 200ML BTL INJ ONE; -LIDOCAINE 1% INJ 10MG/ML (20 ML MDV) ONE; -LIDOCAINE 1% INJ 10MG/ML (20 ML MDV) SQ ONE; -NITROGLYCERIN SL TABS 0.4 MG TAB SUBLINGUAL PRN; -RX INFO: IV CONTRAST WAS GIVEN 1 EACH MISC MISCELLANE PRN; -SODIUM CHLORIDE 0.9% 1,000 ML IV ONE; -SODIUM CHLORIDE 0.9% 1,000 ML in EMPTY BAG 1 BAG IV SCH; -VERAPAMIL 2.5 MG/ML 2 ML AMP ONE; -VERAPAMIL SYRINGE (5 MG/10 ML) INTRAARTER ONE; -fentaNYL (PF) 50 MCG/ML 2 ML AMP IVP ONE; -fentaNYL (PF) 50 MCG/ML 2 ML AMP ONE
[2024-01-19] MEDS ORDERED: LACTATED RINGERS 1,000 ML IV SCH (06:24)
[2024-01-19] MEDS ORDERED: LIDOCAINE 1% (10MG/ML) FOR IV START INTRADERMA PRN (06:24)
[2024-01-19 07:02] VITALS: TEMP 97.8
[2024-01-19] MEDS: IV FLUID CONTINUATION 1,000 ML IV ONE (07:03)
[2024-01-19] MEDS: SODIUM CHLORIDE 0.9% 500 ML 500 ML IV SCH (07:03)
[2024-01-19] MEDS: BENZOCAINE SPRAY 1 CAN TOPICAL ONE (07:32)
[2024-01-19] MEDS ORDERED: PROPOFOL 10 MG/ML 20 ML VIAL IV ONE (07:34)
--- NOTE | 2024-01-19 07:58 | P.PCN ---
Date of Procedure: 01/19/24 Description of Procedure: Indication: Atrial flutter Procedure Description: After explaining the procedure to the patient, it's risk and complications, blood pressure, heart rate and O2 saturation were monitored. The throat was sprayed with Cetacaine. Patient received sedation per anesthesia department . T he probe was introduced into the esophagus without difficulty. Images were obtained. Following that, the probe was removed. There was no immediate complication. Findings: Left atrial size is mildly dilated, left atrial appendage is normal. Left ventricle size is normal. Mild global hypokinesis was noted with ejection fraction of 45 to 50%. The aortic valve, mitral valve and tricuspid valve ap pears to be normal. No pericardial effusion was noted. Contrast bubble study revealed no shunting across the interatrial septum. Descending thoracic aorta appears to be normal. Doppler: Pulse wave and color Doppler were obtained, and revealed mild to moderate multi jet mitral regurgitation with mild tricuspid regurgitation. There was no shunting by color Doppler study. Conclusion: 1. Mildly dilated left atrium with normal appearance of the left atrial appendage 2. Mild global hypokinesis of the left ventricle 3. Mild to moderate mitral with mild tricuspid regurgitation 4. No shunting across the interatrial septum 5. No pericardial fusion Cardioversion: After obtaining CATHY and sedated state synchronized biphasic cardioversion using 150 J was performed with advent of sinus mechanism. There was no immediate complications.
[2024-01-19] MEDS ORDERED: SODIUM CHLORIDE 0.9% 1,000 ML IV SCH (08:00)
[2024-01-19 08:13] VITALS: RESP 16
[2024-01-19 08:51] VITALS: BP 125/86; PULSE 59
[2024-01-19] MEDS ORDERED: NON FORMULARY DRUG (Famotidine [Famotidine] 40 MG Tablet) PO SCH (09:00)
[2024-01-19] MEDS ORDERED: DILTIAZEM ORAL 60 MG TAB PO SCH (09:00)
[2024-01-19] MEDS ORDERED: RIVAROXABAN 20 MG TAB PO SCH (17:30)
== END 2024-01-19 09:22 | disposition home or self-care (01) ==
LOC: OR 05:55
PROVIDERS: ATTEND Internal Medicine Interventional Cardiology
DX: I48.3 Typical atrial flutter (principal); I08.1 Rheumatic disorders of both mitral and tricuspid valves; I48.91 Unspecified atrial fibrillation; K21.9 Gastro-esophageal reflux disease without esophagitis; Z82.49 Family history of ischemic heart disease and other diseases of the circulatory system; Z88.5 Allergy status to narcotic agent; Z88.6 Allergy status to analgesic agent; Z91.040 Latex allergy status; Z87.891 Personal history of nicotine dependence; Z79.899 Other long term (current) drug therapy; Z79.01 Long term (current) use of anticoagulants
CPT/HCPCS: 93312; 93320; 93325; 92960; J2704

== ENCOUNTER → 2024-04-28 | Outpatient (CLI) | payer BC ==
[2024-04-28 20:07] LABS: HCT 41.8 % (37.2-46.3); HGB 14.1 g/dL (12.0-15.0); MCH 30.1 pg (27.0-32.0); MCHC 33.7 g/dL (32.0-37.0); MCV 89.1 FL (80.0-97.0); Mean Platelet Volume 9.4 FL (9.5-12.2); NRBC Per 100 WBC 0 X 10*3/uL (0.00-0.01); Platelet Count 284 X 10*3/uL (140-440); RBC 4.69 X 10*6/uL (4.10-5.20); RDW 12.8 % (11.5-14.5); WBC 6.44 X 10*3/uL (4.50-10.00)
[2024-04-28 20:11] LABS: Blood Urea Nitrogen 10.6 mg/dL (9.0-27.0); Carbon Dioxide 25.5 mmol/L (21.6-31.8); Chloride 107 mmol/L (96-109); Potassium 4.1 mmol/L (3.5-5.5); Sodium 143 mmol/L (135-145)
== END | disposition home or self-care (01) ==
LOC: LABPAT 16:17
PROVIDERS: ATTEND Internal Medicine Clinical Cardiac Electrophysiology
DX: Z01.818 Encounter for other preprocedural examination
CPT/HCPCS: 80051; 82565; 84520; 85027

== ENCOUNTER 2024-05-08 12:44 | Day surgery (SDC) | payer BC ==
[~2024-05-08 12:44] MED LIST changes: +HYDROmorphone 0.5 MG/0.5 ML SYRINGE IVP PRN; +LIDOCAINE 1% (10MG/ML) FOR IV START INTRADERMA PRN; -SODIUM CHLORIDE 0.9% 1,000 ML IV SCH; +droPERidol 5 MG/2 ML VIAL IVP PRN
[2024-05-08] MEDS: IV FLUID CONTINUATION 1,000 ML IV ONE (14:04)
[2024-05-08 14:39] LABS: ALT 21 U/L (4-34); AST 26 U/L (14-36); African American GFR (CKD) 69 (>60 ml/min/1.73 sqM); Albumin 4.6 g/dL (3.5-5.0); Alkaline Phosphatase 85 U/L (38-126); Anion Gap 4 mmol/L; Blood Urea Nitrogen 16 mg/dL (7-17); Calcium 9.8 mg/dL (8.4-10.2); Carbon Dioxide 28 mmol/L (22-30); Chloride 108 mmol/L (98-107); Glucose 86 mg/dL (74-99); Non-African American GFR(CKD) 60 (>60 ml/min/1.73 sqM); Potassium 4.2 mmol/L (3.5-5.1); Sodium 140 mmol/L (137-145); Total Protein 7.6 g/dL (6.3-8.2)
[2024-05-08] MEDS ORDERED: MIDAZOLAM 2 MG/2 ML VIAL ONE (15:50)
[2024-05-08] MEDS ORDERED: PHENYLEPHRINE 10 MG/ML VIAL ONE (15:50)
[2024-05-08] MEDS ORDERED: PROPOFOL 10 MG/ML 20 ML VIAL IV ONE (15:50)
[2024-05-08] MEDS ORDERED: NEOSTIGMINE 1 MG/ML 10 ML VIAL ONE (15:50)
[2024-05-08] MEDS ORDERED: ISOPROTERENOL 250 MCG/1.25 ML SYR IV ONE (15:50)
[2024-05-08] MEDS ORDERED: SUCCINYLCHOLINE CHLORIDE 200 MG/10 ML VIAL IV ONE (15:50)
[2024-05-08] MEDS ORDERED: fentaNYL (PF) 50 MCG/ML 2 ML AMP ONE (15:50)
[2024-05-08] MEDS ORDERED: ROCURONIUM 10 MG/ML (5 ML VIAL) IV ONE (15:50)
[2024-05-08] MEDS ORDERED: GLYCOPYRROLATE 0.2 MG/ML 2 ML VIAL ONE (15:50)
[2024-05-08] MEDS ORDERED: PHENYLEPHRINE-0.9% NACL SYG 1,000 MCG/10 ML SYRINGE ONE (15:50)
[2024-05-08] MEDS ORDERED: LIDOCAINE 1% INJ 10MG/ML (20 ML MDV) ONE (15:50)
[2024-05-08] MEDS: LIDOCAINE 1% INJ 10MG/ML (20 ML MDV) SQ ONE (16:32)
[2024-05-08] MEDS: HEPARIN SODIUM (1,000 UNIT/ML) 1,000 UNIT in SODIUM CHLORIDE 0.9% 1,000 ML IRRIGATION ONE (17:58)
[2024-05-08] MEDS ORDERED: ACETAMINOPHEN TAB 325 MG TAB PO PRN (18:32)
--- NOTE | 2024-05-08 18:38 | P.HPCAR ---
History of Present Illness This is Dr. Jewell dictating an H/P on this patient The patient was interviewed and examined IMPRESSION / ASSESSMENT: Typical atrial flutter Right bundle branch block pattern Mildly reduced LV systolic function History of atrial flutter even in 2018 Recent COVID infection but doing well now without any respiratory complaints PLAN: Diagnostic EP study and ablation for typical atrial flutter Continue Xarelto Discontinue diltiazem thereafter HPI Patient has had recurrent episodes of atrial flutter. She has documented atrial flutter even in 2018 and has recurrent atrial flutter despite amiodarone. Amiodarone was discontinued in 09 March She recently had COVID infection about 3 to 4 weeks back and she did not feel well at that time. She was presyncopal but she has recovered now No recent palpitations No respiratory complaints no shortness of breath ROS: No fever chills or rigors, no cough, phlegm or expectoration, no nausea, vomiting or diarrhea, no hematuria, dysuria, no musculoskeletal complaints, no strokes or seizures, no skin lesions. 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 see dr jewell's h & p History of Any Multi-Drug Resistant Organisms: None Reported Past Surgical History: Cholecystectomy, Tonsillectomy, Tubal Ligation Additional Past Surgical History / Comment(s): EGD, colonoscopy., mass to voicebox removed in April 2021. Past Anesthesia/Blood Transfusion Reactions: No Reported Reaction Additional Past Anesthesia/Blood Transfusion Reaction / Comment(s): Pt states she recieved blood as an but does not know reason. Father had hard time coming out of anesthesia. Smoking Status: Former smoker - Past Family History Mother Family Medical History: No Reported History Additional Family Medical History / Comment(s): Mother in her sleep of unknown cause. Father Family Medical History: Hypertension, Myocardial Infarction (NE) Additional Family Medical History / Comment(s): Father had a NE in his 60s. Physical Examination Vital Signs Temp Pulse Resp BP Pulse Ox 05/08/24 14:02 98.2 F 64 18 153/74 99 Intake and Output 05/08/24 05/08/24 05/08/24 06:59 14:59 22:59 Intake Total 20 737 Balance 20 737 Intake: IV 20 737 Other: Weight 117.3 kg Results 05/08/24 13:58 Cardiac Enzymes 05/08/24 Range/Units 13:58 AST 26 (14-36) U/L Comprehensive Metabolic Panel 05/08/24 Range/Units 13:58 Sodium 140 (137-145) mmol/L Potassium 4.2 (3.5-5.1) mmol/L Chloride 108 H (98-107) mmol/L Carbon Dioxide 28 (22-30) mmol/L BUN 16 (7-17) mg/dL Creatinine 1.02 (0.52-1.04) mg/dL Glucose 86 (74-99) mg/dL Calcium 9.8 (8.4-10.2) mg/dL AST 26 (14-36) U/L ALT 21 (4-34) U/L Alkaline Phosphatase 85 (38-126) U/L Total Protein 7.6 (6.3-8.2) g/dL Albumin 4.6 (3.5-5.0) g/dL Current Medications Generic Name Dose Route Start Last Admin Trade Name Freq PRN Reason Stop Dose Admin Acetaminophen 650 mg 05/08/24 18:32 Acetaminophen Tab 325 Mg Tab PO Q6HR PRN Mild Pain (Scale 1 to 3) Droperidol 0.625 mg 05/08/24 06:31 Droperidol 5 Mg/2 Ml Vial IVP 05/08/24 23:00 ONCE PRN Phase 1 or 2 - Nausea/Vomiting Famotidine 20 mg 05/08/24 22:00 Famotidine 20 Mg Tab PO QID SELVIN Hydromorphone HCl 0.5 mg 05/08/24 06:31 Hydromorphone 0.5 Mg/0.5 Ml Syringe IVP 05/08/24 23:00 Q5M PRN Phase 1 or 2 - Pain Control Acetaminophen 1,000 mg/ IV 100 mls @ 400 mls/hr 05/08/24 18:32 Solution IVPB 05/08/24 18:46 ONCE ONE Lidocaine HCl 0.1 ml 05/08/24 06:31 Lidocaine 1% (10mg/Ml) For Iv Start INTRADERMA 06/07/24 06:30 PER PROTOCOL PRN IV Start Rivaroxaban 20 mg 05/08/24 20:00 Rivaroxaban 20 Mg Tab PO AC-SUPPER [facility] Protocol Sodium Chloride 12 ml 05/08/24 18:32 Sodium Chloride 0.9% Flush 10 Ml Syringe IV Q12HR PRN Line Flush Intake and Output 05/08/24 05/08/24 05/08/24 06:59 14:59 22:59 Intake Total 20 737 Balance 20 737 Intake: IV 20 737 Other: Weight 117.3 kg Patient Weight 05/09/24 06:59 Weight 117.3 kg 05/08/24 13:58
--- NOTE | 2024-05-08 18:43 | P.EPPROC ---
- EP Procedure Note Electrophysiology Procedure Note: Diagnosis Recurrent typical atrial flutter, symptomatic Failed amiodarone Amiodarone has been discontinued since March 09, 2024 Final diagnosis Successful radiofrequency ablation for typical atrial flutter with confirmed bidirectional block Isthmus conduction time greater than 174 ms in either direction Mildly abnormal AV node function and sinus node function at baseline Details Patient was brought to the EP lab in a fasting state. Written informed consent was obtained prior to the procedure. Venous sheath placed in the right left femoral veins and via these diagnostic catheters were positioned on the right heart including intracardiac echo catheter and a long sheath with mapping and ablation catheter High right atrial pacing, His bundle pacing, RV pacing and coronary sinus pacing was performed The patient was in sinus rhythm at the start of the study. Sinus cycle length 1191 ms, QRS 132 ms, QT 500 ms AH 135 ms and HV interval 46 ms Sinus node recovery x 1 965 ms at a pacing cycle length of 600 ms, consistent with sinus node entrance block AV node Wenckebach block 540 ms AK interval is prolonged at baseline Later on Isopril VA Wenckebach block 260 ms. Para-Hisian pacing revealed a rodrigo response AV node Wenckebach block was 300 ms on Isopril Intracardiac echo was performed. 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 No intracardiac masses noted in the left atrial appendage RF ablation was performed and a linear line of block was made in the cavotricuspid isthmus area. This line was then interrogated with pacing maneuvers Differential pacing confirmed bidirectional block Isthmus conduction time in either direction was 174 ms Patient tolerated the procedure well without any acute complication
[2024-05-08] MEDS: DEXAMETHASONE SOD PHOSPHATE 4 MG/ML 1 ML VIAL IV ONE (19:41)
[2024-05-08] MEDS: ONDANSETRON 4 MG/2 ML VIAL IVP ONE (19:43)
[2024-05-08] MEDS: SODIUM CHLORIDE 0.9% 1,000 ML IV SCH (19:52)
[2024-05-08] MEDS: LACTATED RINGERS 1,000 ML IV SCH (20:01)
[2024-05-08] MEDS: FAMOTIDINE 20 MG TAB PO SCH (20:50)
[2024-05-08] MEDS: ACETAMINOPHEN IV (For NPO) 1,000 MG in EMPTY BAG 1 BAG IVPB ONE (20:50)
[2024-05-08] MEDS: RIVAROXABAN 20 MG TAB PO SCH (20:50)
[2024-05-09 03:29] VITALS: RESP 16
[2024-05-09 05:44] LABS: Basophils % (A) 1 %; Eosinophils # (A) 0.1 k/uL (0-0.7); Eosinophils % (A) 1 %; HCT 37.5 % (34.0-46.0); HGB 12.4 gm/dL (11.4-16.0); Lymphocytes # (A) 1.6 k/uL (1.0-4.8); Lymphocytes % (A) 22 %; MCH 30.8 pg (25.0-35.0); MCV 93.5 fL (80.0-100.0); Mean Platelet Volume 7.3; Monocytes # (A) 0.4 k/uL (0-1.0); Monocytes % (A) 6 %; Neutrophils % (A) 69 %; Platelet Count 219 k/uL (150-450); RBC 4.01 m/uL (3.80-5.40); RDW 13.8 % (11.5-15.5); WBC 7.3 k/uL (3.8-10.6)
[2024-05-09 07:27] VITALS: BP 101/66; PULSE 59; TEMP 98.2
--- NOTE | 2024-05-09 12:21 | P.DS ---
Providers Attending physician: Alex Jewell Primary care physician: [facility] Course: Patient is doing well. No chest discomfort dizziness lightheadedness or palpitations Mild groin tenderness without hematoma or swelling on examination Afebrile pulse rate in the 80s sinus mechanism blood pressure 127/80 mmHg Normal heart sounds no murmurs or gallop no rub Clear lungs Groins of healed well no hematoma Impression typical atrial flutter, recurrent, with RVR Status post successful ablation with bidirectional block across the cavotricuspid isthmus with differential pacing Plan Stop diltiazem Continue Xarelto Follow-up with Dr. Calvin and Dr. Escamilla Patient Condition at Discharge: Stable Plan - Discharge Summary Discharge Rx Participant: No New Discharge Prescriptions: No Action RX: Rivaroxaban [Xarelto] 20 mg PO AC-SUPPER RX: Famotidine 20 mg PO QID RX: dilTIAZem HCL 60 mg PO DAILY Discharge Medication List RX: Famotidine 20 mg PO QID 06/25/21 [History] RX: Rivaroxaban [Xarelto] 20 mg PO AC-SUPPER 06/25/21 [History] RX: dilTIAZem HCL 60 mg PO DAILY 01/18/24 [History] Patient Instructions/Handouts: Cardiac Ablation (DC) Activity/Diet/Wound Care/Special Instructions: FOLLOW UP PREVIOUSLY SCHEDULED WITH DR CALVIN KEEP ACCESS SITES DRY FOR 2 DAYS NO HEAVY LIFTING OR STRAINING FOR 2 DAYS AVOID BENDING THE HIPS REPEATEDLY FOR 2 DAYS YOU MAY GO UP AND DOWN STAIRS SLOWLY CALL IF NOTED: BLEEDING, INCREASING SWELLING OR PAIN AT THE ACESS SITES INCREASING CHEST DISCOMFORT, ESPECIALLY UPON TAKING A DEEP BREATH INCREASING SHORTNESS F BREAT, AT REST OR WITH EXERTION UNDUE COUGH/PHLEGM DIFFICULTY OR PAIN WHILE SWALLOWING PAIN OR CHANGE IN COLOR IN THE EXTREMITIES FEVER, CHILLS, RIGORS INCREASED HEADACHE OR NEUROLOGIC SYMPTOMS DIZZINESS, FAINTING, PALPITATIONS
== END 2024-05-09 13:24 | disposition home or self-care (01) ==
LOC: CATHEP 12:44 → 6NMEDSUR 17:52 → CATHEP 05-09 13:24
PROVIDERS: ATTEND Internal Medicine Clinical Cardiac Electrophysiology
DX: R00.0 Tachycardia, unspecified
CPT/HCPCS: 80053; 84443; 85025; 86850; 86900; 86901; 93623; 93653; 93662

== ENCOUNTER → 2024-08-03 | Outpatient (CLI) | payer BC ==
--- NOTE | 2024-08-04 17:38 | MM ---
Reason for Exam: Screening (asymptomatic). Last mammogram was performed 3 year(s) and 7 month(s) ago. Patient History: Menarche at age 15. First Full-Term at age 27. Postmenopausal. Risk Values: Ethel 5 year model risk: 1.6%. NCI Lifetime model risk: 7.9%. Prior Study Comparison: 10/18/2017 Bilateral Screening Mammogram, [facility]. 07/10/2019 Bilateral Screening Mammogram, [facility]. 01/03/2021 Bilateral Screening Mammogram, [facility]. Tissue Density: There are scattered areas of fibroglandular density. Findings: Analyzed By CAD. There is no suspicious group of microcalcifications or new suspicious mass in either breast. Overall Assessment: Negative, BI-RAD 1 Management: Screening Mammogram of both breasts in 1 year. Patient should continue monthly self-breast exams. A clinical breast exam by your physician is recommended on an annual basis. This exam should not preclude additional follow-up of suspicious palpable abnormalities. Note on Ethel scores and lifetime risk: 1. A Ethel score greater than 3% is considered moderate risk. If this is the case, consider specialist referral to assess eligibility for a risk reducing agent. 2. If overall lifetime risk for the development of breast cancer is 20% or higher, the patient may qualify for future screening with alternating mammogram and breast MRI. [facility], , 08/04/2024 5:35 PM. Electronically signed and approved by: Ceci Murillo M.D. Radiologist
== END | disposition home or self-care (01) ==
LOC: RADMAMWWP 08:42
PROVIDERS: ATTEND Family Medicine
DX: Z12.31 Encounter for screening mammogram for malignant neoplasm of breast (principal); R92.323 Mammographic fibroglandular density, bilateral breasts; Z78.0 Asymptomatic menopausal state
CPT/HCPCS: 77063; 77067

== ENCOUNTER → 2024-10-04 | Day surgery (SDC) | payer BC ==
[~2024-10-04] MED LIST changes: +GLYCOPYRROLATE 0.2 MG/ML 2 ML VIAL ONE; -HYDROmorphone 0.5 MG/0.5 ML SYRINGE IVP PRN; -LIDOCAINE 1% (10MG/ML) FOR IV START INTRADERMA PRN; +PROPOFOL 10 MG/ML 20 ML VIAL IV ONE; -droPERidol 5 MG/2 ML VIAL IVP PRN
[2024-10-04] MEDS: LACTATED RINGERS 1,000 ML IV SCH (11:48)
[2024-10-04 11:52] VITALS: TEMP 98.2
[2024-10-04] MEDS: IV FLUID CONTINUATION 1,000 ML IV ONE (12:02)
--- NOTE | 2024-10-04 12:37 | P.PCN ---
Date of Procedure: 10/04/24 Procedure(s) Performed: BRIEF HISTORY: Patient is a 63-year-old pleasant white female scheduled for an elective colonoscopy as a part of screening for colon cancer. PROCEDURE PERFORMED: Colonoscopy with snare polypectomy. PREOPERATIVE DIAGNOSIS: Screening for colon cancer. IV sedation per Anesthesia. PROCEDURE: After informed consent was obtained, the patient, was brought into the endoscopy unit. IV sedation was administered by Anesthesia under continuous monitoring. Digital rectal examination was normal. Initially the Olympus CF-160 flexible video colonoscope was then inserted in the rectum, gradually advanced into the cecum without any difficulty. Careful examination was performed as the scope was gradually being withdrawn. Ileocecal valve and the appendiceal orifice were visualized and appeared normal. Prep was excellent. Mucosa of the cecum 5 mm polyp removed by cold snare polypectomy. In the transverse colon there was a 7 mm polyp removed by cold snare polypectomy. In the descending colon there was a 7 mm polyp removed by cold snare polypectomy. In the rectosigmoid colon there was a 5 mm x 2 polyps removed by cold snare polypectomy. Retroflexion was performed in the rectum no lesions were noted. Scattered sigmoid diverticulosis seen. l. Retroflexion was performed in the rectum and no lesions were seen. The patient tolerated the procedure well. IMPRESSION: 5 mm cecal polyp status post cold snare polypectomy 7 mm transverse colon polyp status post cold snare polypectomy 7 mm descending colon polyp status post polypectomy 2 polyps in the rectosigmoid colon measuring 6 and 7 mm in size status post polypectomy Sigmoid diverticulosis RECOMMENDATIONS: Findings of this examination were discussed with the patient as well as the family.. She was advised to follow with the biopsy results. If the biopsy reveals adenoma she can have repeat colonoscopy in 3 years
[2024-10-04 12:42] VITALS: RESP 16
[2024-10-04 13:04] VITALS: BP 129/83; PULSE 77
== END ==
LOC: ORWHC2ENDO 10:25
PROVIDERS: ATTEND Internal Medicine Gastroenterology
DX: Z12.11 Encounter for screening for malignant neoplasm of colon (principal); D12.3 Benign neoplasm of transverse colon; D12.0 Benign neoplasm of cecum; K63.5 Polyp of colon; K57.30 Diverticulosis of large intestine without perforation or abscess without bleeding; K21.9 Gastro-esophageal reflux disease without esophagitis; M19.90 Unspecified osteoarthritis, unspecified site; I50.9 Heart failure, unspecified; I48.92 Unspecified atrial flutter; Z79.899 Other long term (current) drug therapy; Z79.01 Long term (current) use of anticoagulants; Z90.49 Acquired absence of other specified parts of digestive tract; Z98.890 Other specified postprocedural states; Z90.89 Acquired absence of other organs; Z98.51 Tubal ligation status; Z91.040 Latex allergy status; Z88.5 Allergy status to narcotic agent
CPT/HCPCS: 45385; J2704; J1596; 88305